=== PATIENT | female | born 1985 | race Caucasian/White ===

== ENCOUNTER → 2020-07-31 14:02 | Outpatient (BNVA) | payer OTHER, SELFPAY | PROVIDERS: Visit Provider Dietitian, Registered | DX: Z76.89 Persons encountering health services in other specified circumstances (principal) ==

== ENCOUNTER → 2020-08-21 08:48 | Outpatient (BNVA) | payer OTHER, SELFPAY | PROVIDERS: PCP Nurse Practitioner Family; Visit Provider Dietitian, Registered | DX: Z76.89 Persons encountering health services in other specified circumstances (principal) ==

== ENCOUNTER → 2020-09-11 08:16 | Outpatient (BNVA) | payer OTHER, SELFPAY | PROVIDERS: PCP Nurse Practitioner Family; Visit Provider Dietitian, Registered | DX: Z76.89 Persons encountering health services in other specified circumstances (principal) ==

== ENCOUNTER 2020-09-12 08:11 | Outpatient (REF) | payer OTHER, SELFPAY ==
[2020-09-12 08:48] LABS: MANUAL DIFF FLAG NO
[2020-09-12 08:49] LABS: Basophils Absolute Auto 0.1 X10*3/uL (0.0-0.2); Basophils Percent Auto 0.8 % (0-2); Eosinophils Absolute Auto 0.1 X10*3/uL (0.0-0.4); Eosinophils Percent Auto 1.7 % (0-4); Hematocrit 34.2 % (37-47); Hemoglobin 10.6 g/dl (12.0-16.0); Imm Gran Abs Auto 0.02 X10*3/uL (0.00-0.03); Imm Gran Pct Auto 0.3 % (0.0-0.4); Lymphocytes Absolute Auto 3.3 X10*3/uL (1.2-4.9); Mean Corpuscular Hemoglobin 25.9 pg (27.0-33.0); Mean Corpuscular Volume 83.6 fL (80-98); Mean Platelet Volume 9.3 fL (9.4-12.3); Monocytes Absolute Auto 0.5 X10*3/uL (0.1-1.2); Monocytes Percent Auto 6.6 % (2-11); Neutrophils Absolute Auto 3.6 X10*3/uL (2.0-8.3); Neutrophils Percent Auto 47.6 % (45-73); Platelet Count 339 X10*3/uL (160-400); Red Blood Count 4.09 X10*6/uL (4.20-5.50); Red Cell Distribution Width 13.2 % (11.0-16.0); White Blood Count 7.6 X10*3/uL (4.8-10.8)
[2020-09-12 09:36] LABS: Estimated Average Glucose 94 mg/dL; Hemoglobin A1c % 4.9 %
[2020-09-12 09:50] LABS: Ferritin 2 ng/mL (10-122); TSH reflex Free T4 0.94 mIU/mL (0.32-4.0); Vitamin D 25-OH Total 36.2 ng/mL (>30)
[2020-09-12 09:52] LABS: Alanine Aminotransferase 14 U/L (0-31); Albumin Level 3.7 g/dL (3.5-5.0); Alkaline Phosphatase 56 U/L (39-117); Anion Gap 10 (12-20); Aspartate Amino Transferase 12 U/L (5-31); Bilirubin Total 0.2 mg/dL (0.0-1.0); Blood Urea Nitrogen 11 mg/dL (9-16); C Reactive Protein 0.25 mg/dL (< or = 0.50); Calcium 8.6 mg/dL (8.4-10.2); Carbon Dioxide 28 mmol/L (22-29); Chloride 103 mmol/L (96-108); Cholesterol 185 mg/dL; Estimated Glomerular Filt Rate > 60; Glucose Fasting 75 mg/dL (60-99); HDL Cholesterol 56 mg/dL; Iron 22 mcg/dL (30-160); LDL Cholesterol Calculated 107 mg/dl; Percent Iron Saturation 5 % (15-50); Potassium 5.1 mmol/l (3.3-5.1); Sodium 136 mmol/L (135-145); Total Iron Binding Capacity 415 mcg/dL (228-428); Triglycerides 112 mg/dL; Unsaturated Iron Binding 393 ug/dL
[2020-09-14 08:32] LABS: Folate 14.9 ng/mL (> or = 4.0); Vitamin B12 816 pg/mL (200-900)
[2020-09-14 17:27] LABS: Insulin Level Total 2.9 uIU/mL
[2020-09-16 06:12] LABS: Zinc 74 mcg/dL (60-130)
[2020-09-17 23:56] LABS: Vitamin A 50 mcg/dL (38-98)
[2020-09-22 21:28] LABS: Parathyroid Hormone Related Pr 13 pg/mL (14-27)
== END 2020-09-12 08:12 | disposition home or self-care (01) ==
LOC: HO.LAB 08:11
PROVIDERS: Physician Assistant; Visit Provider Nurse Practitioner Family
DX: K90.49 Malabsorption due to intolerance, not elsewhere classified (principal)
CPT/HCPCS: 36415; 80053; 80061; 82306; 82607; 82728; 82746; 83036; 83519; 83525; 83540; 84425; 84443; 84590; 84630; 85025; 86140

== ENCOUNTER 2020-09-14 07:20 | Outpatient (REF) | payer OTHER, SELFPAY ==
[2020-09-14 08:34] LABS: HBS Num1 37.04 mIU/mL (0-7.99); ~Hepatitis B Surface Antibody REACTIVE (Nonreactive)
[2020-09-15 17:27] LABS: Varicella IgG Antibody <135.00 index
[2020-09-18 19:56] LABS: TS Negative Control Passed; TS Panel A 0; TS Panel B 0; TS Positive Control Passed; TSpotTB Negative (SeeBelow)
== END 2020-09-14 07:21 | disposition home or self-care (01) ==
LOC: HO.LAB 07:20
PROVIDERS: Visit Provider Nurse Practitioner Family
DX: Z28.3 Underimmunization status (principal)
CPT/HCPCS: 86481; 86706; 86735; 86762; 86765; 86787

== ENCOUNTER 2020-09-14 16:15 | Outpatient (REF) | payer OTHER, SELFPAY ==
[2020-09-20 12:57] LABS: Vitamin B1 13 nmol/L (8-30)
== END 2020-09-14 16:16 | disposition home or self-care (01) ==
LOC: HO.LAB 16:15
PROVIDERS: Visit Provider Physician Assistant
DX: K90.49 Malabsorption due to intolerance, not elsewhere classified (principal); Z28.3 Underimmunization status
CPT/HCPCS: 84425

== ENCOUNTER 2021-10-27 12:14 | Outpatient (REF) | payer OTHER, SELFPAY | END 2021-10-27 12:15 | disposition home or self-care (01) | LOC: HO.LAB 12:14 | PROVIDERS: Visit Provider Hospitalist | DX: Z20.822 Contact with and (suspected) exposure to COVID-19 (principal); J02.8 Acute pharyngitis due to other specified organisms; B97.89 Other viral agents as the cause of diseases classified elsewhere | CPT/HCPCS: U0003; U0005 ==

== ENCOUNTER → 2022-01-18 10:46 | Outpatient (BNVA) | payer BC, SELFPAY | PROVIDERS: PCP Nurse Practitioner Family; Referring Provider Nurse Practitioner Family; Visit Provider Physician Assistant Surgical | DX: Z13.89 Encounter for screening for other disorder (principal) ==

== ENCOUNTER → 2022-01-27 12:59 | Outpatient (BNVA) | payer BC, SELFPAY | PROVIDERS: PCP Nurse Practitioner Family; Visit Provider Dietitian, Registered | DX: O09.521 Supervision of elderly multigravida, first trimester (principal); O09.291 Supervision of pregnancy with other poor reproductive or obstetric history, first trimester; O99.210 Obesity complicating pregnancy, unspecified trimester; E66.9 Obesity, unspecified; K91.2 Postsurgical malabsorption, not elsewhere classified; Z88.3 Allergy status to other anti-infective agents; Z3A.01 Less than 8 weeks gestation of pregnancy; Z90.3 Acquired absence of stomach [part of]; Z88.2 Allergy status to sulfonamides; Z88.8 Allergy status to other drugs, medicaments and biological substances; Z71.3 Dietary counseling and surveillance | CPT/HCPCS: 97803 ==

== ENCOUNTER 2022-02-15 16:06 | Outpatient (REF) | payer BC, SELFPAY ==
[2022-02-15 16:19] LABS: MANUAL DIFF FLAG NO
[2022-02-15 16:26] LABS: Basophils Absolute Auto 0.1 X10*3/uL (0.0-0.2); Basophils Percent Auto 0.5 % (0-2); Eosinophils Absolute Auto 0.2 X10*3/uL (0.0-0.4); Eosinophils Percent Auto 1.6 % (0-4); Hematocrit 32.7 % (37.0-47.0); Hemoglobin 10.3 g/dl (12.0-16.0); Imm Gran Abs Auto 0.04 X10*3/uL (0.00-0.03); Imm Gran Pct Auto 0.4 % (0.0-0.4); Lymphocytes Absolute Auto 3.9 X10*3/uL (1.2-4.9); Lymphocytes Percent Auto 39.7 % (20-40); Mean Corpuscular HGB Conc 31.5 g/dl (31.0-35.0); Mean Corpuscular Hemoglobin 24.5 pg (27.0-33.0); Mean Corpuscular Volume 77.9 fL (80.0-98.0); Mean Platelet Volume 9.3 fL (9.4-12.3); Monocytes Absolute Auto 0.7 X10*3/uL (0.1-1.2); Monocytes Percent Auto 6.9 % (2-11); Neutrophils Percent Auto 50.9 % (45-73); Platelet Count 291 X10*3/uL (160-400); Red Cell Distribution Width 16.9 % (11.0-16.0); White Blood Count 9.8 X10*3/uL (4.8-10.8)
[2022-02-15 16:35] LABS: Estimated Average Glucose 94 mg/dL; Hemoglobin A1c % 4.9 %
[2022-02-15 16:59] LABS: Anion Gap 10 (12-20); Blood Urea Nitrogen 8 mg/dL (9-16); Calcium 9.8 mg/dL (8.4-10.2); Carbon Dioxide 26 mmol/L (22-29); Chloride 105 mmol/L (96-108); Estimated Glomerular Filt Rate > 60; Glucose Random 89 mg/dL (60-115); Iron 27 mcg/dL (30-160); Percent Iron Saturation 6 % (15-50); Potassium 4.7 mmol/L (3.3-5.1); Sodium 136 mmol/L (135-145); Total Iron Binding Capacity 439 mcg/dL (228-428); Unsaturated Iron Binding 412 ug/dL
[2022-02-15 17:21] LABS: Ferritin 5 ng/mL (10-122); TSH reflex Free T4 1.02 uIU/mL (0.32-4.0); Vitamin D 25-OH Total 29.4 ng/mL (>30)
[2022-02-15 17:32] LABS: Folate 18.1 ng/mL (> or = 4.0); Vitamin B12 799 pg/mL (200-900)
[2022-02-19 02:18] LABS: Zinc 61 mcg/dL (60-130)
[2022-02-21 10:53] LABS: Vitamin B1 19 nmol/L (8-30)
[2022-02-21 13:26] LABS: Vitamin A 43 mcg/dL (38-98)
== END 2022-02-15 16:07 | disposition home or self-care (01) ==
LOC: HO.LAB 16:06
PROVIDERS: PCP Nurse Practitioner Family; Visit Provider Physician Assistant Surgical
DX: O99.210 Obesity complicating pregnancy, unspecified trimester (principal); E66.9 Obesity, unspecified
CPT/HCPCS: 36415; 80048; 82306; 82607; 82728; 82746; 83036; 83540; 84425; 84443; 84590; 84630; 85025

== ENCOUNTER → 2022-02-16 10:39 | Outpatient (BNVA) | payer BC, SELFPAY | PROVIDERS: PCP Nurse Practitioner Family; Referring Provider Nurse Practitioner Family; Visit Provider Physician Assistant Surgical | DX: Z13.89 Encounter for screening for other disorder (principal) ==

== ENCOUNTER → 2022-03-16 08:12 | Outpatient (BNVA) | payer BC, SELFPAY | PROVIDERS: PCP Nurse Practitioner Family; Referring Provider Physician Assistant Surgical; Visit Provider Dietitian, Registered | DX: E66.9 Obesity, unspecified (principal); Z68.34 Body mass index [BMI] 34.0-34.9, adult | CPT/HCPCS: 97803 ==

== ENCOUNTER → 2022-05-06 08:33 | Outpatient (BNVA) | payer BC, SELFPAY | PROVIDERS: PCP Nurse Practitioner Family; Referring Provider Physician Assistant Surgical; Visit Provider Dietitian, Registered | DX: E66.9 Obesity, unspecified (principal) | CPT/HCPCS: 97803 ==

== ENCOUNTER → 2022-07-07 14:50 | Outpatient (BNVA) | payer BC, SELFPAY | PROVIDERS: PCP Nurse Practitioner Family; Referring Provider Physician Assistant Surgical; Visit Provider Dietitian, Registered | DX: E66.9 Obesity, unspecified (principal); Z90.3 Acquired absence of stomach [part of]; Z68.35 Body mass index [BMI] 35.0-35.9, adult | CPT/HCPCS: 97803 ==

== ENCOUNTER 2022-08-04 10:08 | Outpatient (REF) | payer BC, SELFPAY ==
[2022-08-04 10:49] LABS: MANUAL DIFF FLAG NO
[2022-08-04 11:22] LABS: Basophils Absolute Auto 0.1 X10*3/uL (0.0-0.2); Basophils Percent Auto 0.5 % (0-2); Eosinophils Absolute Auto 0.1 X10*3/uL (0.0-0.4); Eosinophils Percent Auto 0.7 % (0-4); Hematocrit 33.4 % (37.0-47.0); Hemoglobin 10.8 g/dl (12.0-16.0); Imm Gran Abs Auto 0.16 X10*3/uL (0.00-0.03); Imm Gran Pct Auto 1.5 % (0.0-0.4); Lymphocytes Absolute Auto 2.7 X10*3/uL (1.2-4.9); Lymphocytes Percent Auto 24.8 % (20-40); Mean Corpuscular HGB Conc 32.3 g/dl (31.0-35.0); Mean Corpuscular Hemoglobin 26.5 pg (27.0-33.0); Mean Corpuscular Volume 82.1 fL (80.0-98.0); Mean Platelet Volume 9.7 fL (9.4-12.3); Monocytes Absolute Auto 0.6 X10*3/uL (0.1-1.2); Monocytes Percent Auto 5.7 % (2-11); Neutrophils Absolute Auto 7.3 x10*3/uL (2.0-8.3); Neutrophils Percent Auto 66.8 % (45-73); Platelet Count 238 X10*3/uL (160-400); Red Blood Count 4.07 X10*6/uL (4.20-5.50); Red Cell Distribution Width 13.8 % (11.0-16.0)
[2022-08-04 12:11] LABS: Vitamin D 25-OH Total 32.7 ng/mL (>30)
[2022-08-04 12:26] LABS: Alanine Aminotransferase 10 U/L (0-31); Albumin Level 3.5 g/dL (3.5-5.0); Alkaline Phosphatase 73 U/L (39-117); Anion Gap 13 (12-20); Aspartate Amino Transferase 12 U/L (5-31); Bilirubin Total < 0.2 mg/dL (0.0-1.0); Blood Urea Nitrogen 7 mg/dL (9-16); Calcium 8.5 mg/dL (8.4-10.2); Carbon Dioxide 23 mmol/L (22-29); Chloride 106 mmol/L (96-108); Cholesterol 227 mg/dL; Estimated Glomerular Filt Rate > 60; Glucose Random 77 mg/dL (60-115); HDL Cholesterol 71 mg/dL; Iron 41 mcg/dL (30-160); LDL Cholesterol Calculated 130 mg/dl; Percent Iron Saturation 7 % (15-50); Potassium 4.5 mmol/L (3.3-5.1); Sodium 137 mmol/L (135-145); Total Iron Binding Capacity 560 mcg/dL (228-428); Total Protein 6.1 g/dL (6.5-8.0); Triglycerides 133 mg/dL; Unsaturated Iron Binding 519 ug/dL
[2022-08-04 12:30] LABS: Vitamin B12 688 pg/mL (200-900)
[2022-08-05 12:06] LABS: Calcium (PTHI) 8.7 mg/dL (8.6-10.2); PTHI 27 pg/mL (16-77)
[2022-08-09 19:47] LABS: Vitamin A 41 mcg/dL (38-98)
[2022-08-09 23:55] LABS: Zinc 57 mcg/dL (60-130)
[2022-08-11 16:41] LABS: Vitamin B1 10 nmol/L (8-30)
== END 2022-08-04 10:09 | disposition home or self-care (01) ==
LOC: HO.LAB 10:08
PROVIDERS: PCP Nurse Practitioner Family; Visit Provider Physician Assistant
DX: O99.019 Anemia complicating pregnancy, unspecified trimester (principal); E61.1 Iron deficiency; Z90.3 Acquired absence of stomach [part of]
CPT/HCPCS: 36415; 80053; 80061; 82306; 82607; 82746; 83540; 83970; 84425; 84590; 84630; 85025

== ENCOUNTER → 2022-08-05 09:31 | Outpatient (BNVA) | payer BC, SELFPAY | PROVIDERS: PCP Nurse Practitioner Family; Referring Provider Nurse Practitioner Family; Visit Provider Dietitian, Registered | DX: E66.9 Obesity, unspecified (principal); Z68.37 Body mass index [BMI] 37.0-37.9, adult | CPT/HCPCS: 97803 ==

== ENCOUNTER 2022-12-26 09:31 | Outpatient (REF) | payer BC, SELFPAY ==
[2022-12-26 09:52] LABS: MANUAL DIFF FLAG NO
[2022-12-26 10:40] LABS: Appearance Urine Cloudy; Color Urine Yellow; Glucose Urine UA Negative (Negative); Leukocyte Esterase Urine Small (1+) (Negative); Nitrite Urine Negative (Negative); Specific Gravity - Urine 1.015 (1.005-1.025); UMIC TRIGGER UACC YES; Urine Blood Negative (Negative); Urine Ketones Negative (Negative); Urine Protein Negative (Neg-Trace)
[2022-12-26 10:49] LABS: Bacteria Urine 1+ (None Seen); RBC Urine 0-2 /HPF (0-2); UACC Culture Trigger YES
[2022-12-26 10:50] LABS: Hyaline Casts Urine 0-2 /LPF (0-2)
[2022-12-26 10:58] LABS: Basophils Absolute Auto 0.1 X10*3/uL (0.0-0.2); Basophils Percent Auto 0.8 % (0-2); Eosinophils Absolute Auto 0.1 X10*3/uL (0.0-0.4); Eosinophils Percent Auto 1.9 % (0-4); Hematocrit 36.1 % (37.0-47.0); Hemoglobin 11.5 g/dl (12.0-16.0); Imm Gran Abs Auto 0.02 X10*3/uL (0.00-0.03); Imm Gran Pct Auto 0.3 % (0.0-0.4); Lymphocytes Absolute Auto 3.2 X10*3/uL (1.2-4.9); Lymphocytes Percent Auto 43.6 % (20-40); Mean Corpuscular HGB Conc 31.9 g/dl (31.0-35.0); Mean Corpuscular Volume 81.5 fL (80.0-98.0); Mean Platelet Volume 9.7 fL (9.4-12.3); Monocytes Absolute Auto 0.5 X10*3/uL (0.1-1.2); Monocytes Percent Auto 6.3 % (2-11); Neutrophils Absolute Auto 3.4 x10*3/uL (2.0-8.3); Neutrophils Percent Auto 47.1 % (45-73); Platelet Count 308 X10*3/uL (160-400); Red Blood Count 4.43 X10*6/uL (4.20-5.50); Red Cell Distribution Width 13.9 % (11.0-16.0); White Blood Count 7.3 X10*3/uL (4.8-10.8)
[2022-12-26 11:33] LABS: Alanine Aminotransferase 21 U/L (0-31); Alkaline Phosphatase 49 U/L (39-117); Anion Gap 13 (12-20); Aspartate Amino Transferase 15 U/L (5-31); Bilirubin Total 0.4 mg/dL (0.0-1.0); Blood Urea Nitrogen 13 mg/dL (9-16); Calcium 8.8 mg/dL (8.4-10.2); Carbon Dioxide 26 mmol/L (22-29); Chloride 108 mmol/L (96-108); Cholesterol 204 mg/dL; Estimated Glomerular Filt Rate > 60; Glucose Fasting 75 mg/dL (60-99); HDL Cholesterol 60 mg/dL; LDL Cholesterol Calculated 130 mg/dl; Potassium 4.6 mmol/L (3.3-5.1); Sodium 142 mmol/L (135-145); Total Protein 6.4 g/dL (6.5-8.0); Triglycerides 71 mg/dL
[2022-12-26 12:06] LABS: Folate 13.5 ng/mL (> or = 4.0); TSH reflex Free T4 1.14 uIU/mL (0.32-4.0); Vitamin B12 417 pg/mL (200-900)
[2022-12-28 09:38] LABS: Transglutaminase Ab IgG <1.0 U/mL; Transglutaminase IgA <1.0 U/mL
[2022-12-29 17:14] LABS: Endomysial IgA Antibody Negative (Negative)
== END 2022-12-26 09:32 | disposition home or self-care (01) ==
LOC: HO.LAB 09:31
PROVIDERS: PCP Nurse Practitioner Family; Visit Provider Nurse Practitioner Family
DX: Z00.00 Encounter for general adult medical examination without abnormal findings (principal); K90.41 Non-celiac gluten sensitivity; R82.90 Unspecified abnormal findings in urine; R53.83 Other fatigue
CPT/HCPCS: 36415; 80053; 80061; 81001; 82607; 82746; 84443; 85025; 86231; 86364; 87086

== ENCOUNTER 2024-03-01 18:35 | Emergency (ER) | payer BC, SELFPAY ==
[2024-03-01 19:09] VITALS: BP 129/72; PULSE 59; RESP 14; TEMP 36.6; O2SAT 100; BMI 38.8
--- NOTE | 2024-03-01 19:09 | ED.EYEPROB ---
HPI - Eye Problem General Chief complaint: Eye Problems Stated complaint: L eye inj Time Seen by Provider: 03/01/24 20:00 Source: patient, RN notes reviewed and old records reviewed Mode of arrival: ambulatory Limitations: no limitations History of Present Illness HPI Narrative: 39-year-old female presents for evaluation of left eye pain Patient was poked in the eye with a stick by her [id number] about 2 hours prior to arrival She reports some excessive tearing and slight blurry vision The patient does not wear contacts but does occasionally wear glasses Intra-ocular pressure was measured in triage with the right eye measuring 15 mmHg and left eye measuring 16 mmHg Patient feels a scratching sensation whenever she blinks She has no other complaints or concerns at this time Related Data Home Medications ?Medication ?Instructions ?Recorded ?Confirmed acetaminophen 325 mg tablet 650 mg PO Q4H PRN pain 09/09/20 11/23/22 flu vac qs 2019(4 yr up)CD(PF) 60 ml IM 09/09/20 11/23/22 mcg(15 mcgx4)/0.5 mL IM syringe Greg+D PO BID 01/18/22 11/23/22 MVI PO DAILY 01/18/22 11/23/22 b12 PO DAILY 02/16/22 11/23/22 biotin 2,500 mcg capsule 2,500 mcg PO DAILY 05/31/22 11/23/22 ferrous sulfate 325 mg (65 mg 325 mg PO DAILY 05/31/22 11/23/22 iron) tablet (Feosol) ascorbate calcium (vitamin C) 500 500 mg PO DAILY 11/23/22 11/23/22 mg tablet sertraline 50 mg tablet 50 mg PO DAILY 11/23/22 11/23/22 Previous Rx's ?Medication ?Instructions ?Recorded zinc acetate 25 mg (zinc) capsule 25 mg PO DAILY #30 caps 08/12/22 (Galzin) erythromycin 5 mg/gram (0.5 %) eye 0.5 inch ophthalmic (eye) TID 5 03/01/24 ointment days #3.5 grams Allergies Allergy/AdvReac Type Severity Reaction Status Date / Time sulfamethoxazole Allergy Mild SEVERE Verified 03/01/24 19:11 [From BACTRIM] MIGRAINES trimethoprim [From BACTRIM] Allergy Mild SEVERE Verified 03/01/24 19:11 MIGRAINES Sulfa (Sulfonamide Allergy Unknown SEVERE Verified 03/01/24 19:11 Antibiotics) MIGRAINES, migraines, migraines NSAIDS (Non-Steroidal AdvReac unable to Verified 03/01/24 19:11 Anti-Inflamma take 2/2 gastric sleeve Review of Systems Constitutional: Constitutional: Denies anorexia, Denies body ache(s) and Denies headache(s) Eyes: Eyes: Reports blurry vision, Denies change in vision, Denies irritation, Denies itchy eyes, Reports eye pain and Reports requires corrective lenses ENT: Denies headache(s) and Denies sore throat Cardiovascular: Cardiovascular: Denies chest pain and Denies dyspnea Respiratory: Respiratory: Denies cough and Denies dyspnea Integumentary/Breasts: Skin/Breast: Denies rash Neurologic: Denies headache(s) Allergic/Immunologic: Allergic/Immunologic: Denies itchy eyes PMFSH Past Medical History Medical History Cervical polyp History of miscarriage, not currently Malabsorption due to intolerance, not elsewhere classified Surgical History History of sleeve gastrectomy Hx of wisdom tooth extraction Family History Family History Father Hypertension Substance use disorder Mother Alcoholism S/P panniculectomy Active asthma Hypertension Substance use disorder Mental health disorder Sister Alcoholism Hypertension Mental health disorder Social History Social History Housing: Apartment Alcohol intake: never Patient Tobacco Use Status: Never used Tobacco e-Cigarette/Vaping Use: Never Used Second Hand Smoke Exposure: No Advance Directives: No Advance Directives Information Provided: No service: No Current occupational status: employed Current occupation: [employer] in [place] Current occupational exposures/hazards: No Cognitive needs: No Hearing needs: No Vision needs: No Physical Exam Vital Signs: Vital Signs: Last Vital Signs Temp 97.8 F 03/01/24 20:35 Pulse 65 03/01/24 20:35 Resp 18 03/01/24 20:35 BP 120/58 L 03/01/24 20:35 Pulse Ox 100 03/01/24 20:35 O2 Del Method Room Air 03/01/24 20:21 BMI result Body Mass Index 38.8 Eyes: Alignment and Position: alignment normal Periorbital: periorbital findings normal Eyelids: Yes eyelids normal Conjunctivae: conjunctival abnormal left conjunctival chemosis (In the very lateral corner of the eye) Corneas: corneas abnormal on the left (Increased fluorescein uptake at the 5 o'clock position of the cornea. Negative Mikayla sign) fluorescein used and fluorescein used Course Course Course Narrative: This is a rapid medical exam performed by Royal Gruber NP: Additional HPI, ROS, PE not included below will be deferred to primary provider. Patient is a 39-year-old female presenting to the ED after left eye injury. States child accidentally hit her in the eye with a stick in the yard 1.5-2 hours ago. She reports bubble to lateral corner of inner eyelid. Some blurred vision and occasional black spots. Occasional glasses, does not wear contacts. IOPs: R 15, L 16. Plan: visual acuity, tetracaine and fluorescein ordered Medications Administered Discontinued Medications Generic Name Dose Route Start Last Admin Trade Name Freq PRN Reason Stop Dose Admin Erythromycin 1 cm 03/01/24 20:26 03/01/24 20:32 Erythromycin Base 0.5% Oph Oin 1 Gm Tube EYE-LEFT 03/01/24 20:27 1 cm ONCE ONE Administration Fluorescein Sodium 1 strip 03/01/24 19:17 03/01/24 20:34 Fluorescein Sodium Strip EYE-LEFT 03/01/24 19:18 1 strip ONCE ONE Administration Tetracaine HCl 1 drop 03/01/24 19:17 03/01/24 20:34 Tetracaine Hcl 0.5% Oph Jessica 5 Ml Drops EYE-LEFT 03/01/24 19:18 1 drop ONCE ONE Administration Medical Decision Making Medical Decision Making MDM Narrative: 31 old female presents for evaluation after a traumatic injury to the left eye. Her pupils round, reactive to light and accommodation. She has extraocular motion intact in all cardinal directions. There is no evidence of foreign body on exam. She has a small bubble like area of chemosis near the lacrimal duct of the lateral side. There is a small corneal abrasion. Intra-ocular pressures are within normal limits. Will treat with erythromycin for corneal abrasion she was given Ophthalmology follow-up for any further concerns. Differential Diagnosis Differential Diagnoses: The differential diagnosis associated with the presentation includes Corneal abrasion Chemosis Foreign body Globe rupture less likely Discharge Plan Discharge Clinical Impression: Injury of conjunctiva and corneal abrasion of left eye w/o FB Patient Disposition: Home, Self-Care Instructions: Corneal Abrasion (ED) Additional Instructions: You have a corneal abrasion to the left eye. The bubble like structure is called chemosis This is common with trauma to the eye Use erythromycin ointment 3 times daily for the next 5 days You may use ibuprofen/Tylenol for pain Follow-up with Dr. Soto, Ophthalmology at the number provided Prescriptions: New erythromycin 5 mg/gram (0.5 %) ointment 0.5 inch ophthalmic (eye) TID 5 Days Qty: 3.5 0RF No Action Galzin 25 mg (zinc) capsule 25 mg PO DAILY Qty: 30 6RF acetaminophen 325 mg tablet 650 mg PO Q4H PRN (Reason: pain) Flucelvax Quad (PF) 60 mcg (15 mcg x 4)/0.5 mL syringe IM biotin 2,500 mcg capsule 2,500 mcg PO DAILY ferrous sulfate [Feosol] 325 mg (65 mg iron) tablet 325 mg PO DAILY ascorbate calcium (vitamin C) 500 mg tablet 500 mg PO DAILY sertraline 50 mg tablet 50 mg PO DAILY Greg+D PO BID MVI PO DAILY b12 2,500 mcg PO DAILY Referrals: Josr Soto [Physician] - (left eye corneal abrasion f/u) Interventions: ED Discharge Assessment Last Done: 03/01/24 20:35 Discharge Date/Time: 03/01/24 20:37 Print Language: Chinese
[2024-03-01 20:21] VITALS: BP 120/58; PULSE 65; RESP 18; TEMP 36.6; O2SAT 100
[2024-03-01] MEDS: Erythromycin Base 0.5% Oph Oin 1 GM TUBE 1 CM EYE-LEFT (20:32)
[2024-03-01] MEDS: Fluorescein Sodium STRIP 1 STRIP EYE-LEFT (20:34)
[2024-03-01] MEDS: Tetracaine HCl 0.5% Oph Sol 5 ML DROPS 1 DROP EYE-LEFT (20:34)
[2024-03-01 20:35] VITALS: BP 120/58; PULSE 65; RESP 18; TEMP 36.6; O2SAT 100
== END 2024-03-01 20:37 | disposition home or self-care (01) ==
PROVIDERS: Emergency Provider Emergency Medicine; PCP Nurse Practitioner Family
DX: S05.02XA Injury of conjunctiva and corneal abrasion without foreign body, left eye, initial encounter (principal); H57.12 Ocular pain, left eye; X58.XXXA Exposure to other specified factors, initial encounter; Y93.9 Activity, unspecified; Y92.9 Unspecified place or not applicable; Y99.8 Other external cause status
CPT/HCPCS: 99283

== ENCOUNTER 2024-09-09 09:35 | Outpatient (AMB) | payer BC, SELFPAY ==
--- NOTE | 2024-09-09 09:39 | MHC.OFFWIV ---
Intake Vital Signs 09/09/24 09:42 Height 5 ft 2 in Weight 215 lb 4 oz BMI 39.4 BP 114/69 Blood Pressure Location Rt brachial Position Sitting Respiration 13 Pulse 60 Pulse Source Pulse Oximeter Pulse Oximetry (%) 98 Oxygen Delivery Method Room Air Intake Visit Reasons: walkin work physical Intake Note: walk in work physical Patient Tobacco Use Status: Never used Tobacco Border Inspector Required: No Allergies sulfamethoxazole [From BACTRIM] Allergy (Mild, Verified 09/09/24 09:46) SEVERE MIGRAINES trimethoprim [From BACTRIM] Allergy (Mild, Verified 09/09/24 09:46) SEVERE MIGRAINES Sulfa (Sulfonamide Antibiotics) Allergy (Unknown, Verified 09/09/24 09:46) SEVERE MIGRAINES, migraines, migraines NSAIDS (Non-Steroidal Anti-Inflamma Adverse Reaction (Verified 09/09/24 09:46) unable to take 2/2 gastric sleeve Medication List - Last Reconciled 09/09/24 by CHERISE Olmedo acetaminophen 650 mg PO Q4H PRN ascorbate calcium (vitamin C) 500 mg PO DAILY [b12 PO DAILY] biotin 2,500 mcg PO DAILY [Greg+D PO BID] ferrous sulfate (Feosol) 325 mg PO DAILY [ MVI PO DAILY] sertraline 50 mg PO DAILY zinc acetate (Galzin) 25 mg PO DAILY Do you need a note to return to daycare/school/sports/work: Yes HPI HPI Comments History of Present Illness Details Here today for pre-employment physical exam [employer] for [employer], start Date 09/23/2024 Glasses - UTD on eye exam Summer 2023 Tdap 2022 Flu today Offers no complaints PFSH Medical History (Updated 09/09/24 @ 12:58 by CHERISE Olmedo) Pancreatitis, gallstone History of miscarriage, not currently Cervical polyp Malabsorption due to intolerance, not elsewhere classified Surgical History (Updated 04/28/24 @ 13:55 by CHERISE Catalan) Hx laparoscopic cholecystectomy History of sleeve gastrectomy Hx of wisdom tooth extraction Family History Father Hypertension Substance use disorder Mother Alcoholism S/P panniculectomy Active asthma Hypertension Substance use disorder Mental health disorder Sister Alcoholism Hypertension Mental health disorder Social History Housing: Apartment Alcohol intake: never Patient Tobacco Use Status: Never used Tobacco e-Cigarette/Vaping Use: Never Used Second Hand Smoke Exposure: No service: No Current occupational status: employed Current occupation: [employer] in [place] Current occupational exposures/hazards: No Cognitive needs: No Hearing needs: No Vision needs: No Review of Systems Const Details: Constitutional: Denies fever. Skin: Denies rash. Eye: Denies eye pain. ENMT: Denies sore throat and nasal congestion. Respiratory: Denies shortness of breath and cough. Gastrointestinal: Denies nausea, vomiting or abdominal pain. Cardiovascular: Denies chest pain and syncope. Genitourinary: Denies dysuria. Musculoskeletal: Denies back pain and extremity pain. Neurologic: Denies headaches, confusion, and weakness. Psychiatric: Denies suicidal thoughts and substance abuse. Allergy/ Immunologic: Denies impaired immunity. Physical Exam Vital Signs: Last Vital Signs Pulse 60 09/09/24 09:42 Resp 13 09/09/24 09:42 BP 114/69 09/09/24 09:42 Pulse Ox 98 09/09/24 09:42 Oxygen Delivery Method Room Air 09/09/24 09:42 BMI result Body Mass Index 39.4 Const Other: General: Well developed, well nourished, in no acute distress. Appears stated age. Head: Normocephalic, atraumatic. Eyes: Pupils are equal, round and reactive to light and accommodation. Conjunctivae are clear. Vision grossly normal. Ears: TMs clear AU, EACS WNL Nose: Patent, without discharge. Mouth: There are no ulcers or lesions noted. No inflammation, no post nasal drip, no plaques nor exudates. Neck: Supple, no adenopathy or thyromegaly. Lungs: Clear to auscultation bilaterally. No rales, rhonchi or wheeze noted. Good air flow in all enrique. Heart: Regular rate and rhythm. No murmurs, click, rubs or gallops are noted. Abdomen: Bowel sounds present in all quadrants. The abdomen is soft, nontender, with no masses or organomegaly noted. No hernias are noted. Musculoskeletal: Joints are nontender, without swelling, redness, or effusions. Range of motion is observed to be normal. Pulses: Peripheral pulses are equal and palpable bilaterally. Extremities: No clubbing, cyanosis nor edema is noted. Neurologic: Gait and station normal. Cranial Nerves 2-12 intact. Motor strength grossly symmetrical and intact. No sensory loss. Balance normal. Skin: No rashes, ulcers, or lesions noted. Turgor is good. Skin color is good. Hair and nails are without abnormalities. Psych: Normal eye contact, affect and mood appropriate, and normal interactions. Patient is alert and appropriate to context. Office Procedures Flu Questionnaire Does the patient have a severe egg allergy?: No Does the patient have severe life threatening allergies?: No Does the patient have a fever or illness today?: No Has the patient ever had Guillain-Oberlin Syndrome?: No Has the patient ever had any past reaction to a flu shot?: No Immunizations Fluarix Triv [id number] (PF) 45 mcg (15 mcg x 3)/0.5 mL IM syringe Performing Provider: CHERISE Olmedo [place] [facility] [place] [facility] Administered by: Yolanda Ray RN on 09/09/24 10:12 Dose Route Admin Location Dispensed Lot Number Expiration Date [facility] Pulmonology Technician 0.5 mL IM Right Deltoid 0.5 mL [id number] 04/21/25 [id number] [employer] VIS Given Date VIS Provided VIS Publication Date 09/09/24 Single Vaccine 21 Eligibility Eligibility Date Funding Source Not [facility] Eligible 09/09/24 Private Assessment & Plan Assessment & Plan (1) Physical exam, pre-employment: Comment: Cleared to work, without restrictions, note provided Code(s): Z02.1 - Encounter for pre-employment examination Plan: . (2) Screening for tuberculosis: Code(s): Z11.1 - Encounter for screening for respiratory tuberculosis Plan: . (3) Flu vaccine need: Code(s): Z23 - Encounter for immunization Plan . Orders: Orders T Spot TB Today Z02.1 - Encounter for pre-employment examination, Z11.1 - Encounter for screening for respiratory tuberculosis Influenza [id number] Immunization Today Z23 - Encounter for immunization Coding Level of Care Code Sports/Work/School Physical Diagnoses Physical exam, pre-employment Z02.1 Screening for tuberculosis Z11.1 Flu vaccine need Z23
[2024-09-09 09:42] VITALS: BP 114/69; PULSE 60; RESP 13; O2SAT 98; BMI 39.4
== END 2024-09-09 10:15 | disposition home or self-care (01) ==
PROVIDERS: PCP Nurse Practitioner Family; Visit Provider Nurse Practitioner Family
DX: Z00.00 Encounter for general adult medical examination without abnormal findings (principal); Z11.1 Encounter for screening for respiratory tuberculosis; Z23 Encounter for immunization

== ENCOUNTER → 2024-09-09 09:35 | Outpatient (BNVA) | payer BC, SELFPAY | PROVIDERS: PCP Nurse Practitioner Family ==

== ENCOUNTER 2024-09-09 10:14 | Outpatient (REF) | payer OTHER, SELFPAY ==
[2024-09-12 10:04] LABS: TS Negative Control Passed; TS Panel A 0; TS Panel B 3; TS Positive Control Passed; TSpotTB Negative (Negative)
== END 2024-09-09 10:15 | disposition home or self-care (01) ==
LOC: HO.WFDLDS 10:14
PROVIDERS: Visit Provider Nurse Practitioner Family
DX: Z02.1 Encounter for pre-employment examination (principal); Z23 Encounter for immunization; Z11.1 Encounter for screening for respiratory tuberculosis
CPT/HCPCS: 36415; 86481; 90471; 90656

== ENCOUNTER 2025-06-09 07:35 | Outpatient (AMB) | payer BC, SELFPAY ==
[2025-06-09 07:40] VITALS: BP 102/60; PULSE 67; O2SAT 100; BMI 40.6
--- NOTE | 2025-06-09 07:40 | AM.OFFWIN_ITS ---
Intake Vital Signs 06/09/25 07:40 Height 5 ft 2 in Weight 222 lb BMI 40.6 BP 102/60 Blood Pressure Location Rt brachial Position Sitting Pulse 67 Pulse Source Pulse Oximeter Pulse Oximetry (%) 100 Oxygen Delivery Method Room Air Intake Visit Reasons: EP-diarrhea Intake Note: presents with diarrhea flares for a few months. h/p cholecystectomy & ciliac disease. states last flare was a couple days. Patient Tobacco Use Status: Never used Tobacco Allergies sulfamethoxazole (From BACTRIM) Allergy (Mild, Verified 06/09/25 07:44) SEVERE MIGRAINES trimethoprim (From BACTRIM) Allergy (Mild, Verified 06/09/25 07:44) SEVERE MIGRAINES Sulfa (Sulfonamide Antibiotics) Allergy (Unknown, Verified 06/09/25 07:44) SEVERE MIGRAINES, migraines, migraines NSAIDS (Non-Steroidal Anti-Inflamma Adverse Reaction (Verified 06/09/25 07:44) unable to take 2/2 gastric sleeve Do you need a note to return to daycare/school/sports/work: No HPI HPI Comments History of Present Illness0 Details History of Present Illness - The patient is a 40-year-old female pr esenting with persistent diarrhea. - The diarrhea has been ongoing for a fe w months, occurring sporadically regardless of dietary intake, including both high-fat and low-fat foods. - The patient follows a strict gluten-fr ee diet due to celiac disease, diagnosed in 2019, and reports low risk of cross-contamination at home. - She underwent cholecystectomy last , and symptoms have persisted since then, suggesting post-cholecystectomy syndrome. - Occasional bloody stools have been not ed, possibly due to hemorrhoids, with no associated fever, n,v or significant weight loss. - There is a family history of celiac di ana maria and a cousin with colon cancer, prompting consideration for further gastrointestinal evaluation. Physical Exam General: Cooperative, healthy appearing, comfortable, no acute distress and well developed Orientation: Patient oriented x3 Limitations: No limitations Head: Normal to inspection Ears: Hearing grossly normal bilaterally Nose: Normal External nose present Face and sinus: Normal facial exam Eyes: Appearance normal, both eyes and all related structures Neck: Normal visual inspection and Yes full ROM Respiratory: Normal respiratory effort and able to speak in complete sentences. Skin: No rashes or lesions noted Neuro: Patient oriented x3 Extremities: Normal to inspection [facility] Medical History (Updated 06/09/25 @ 08:00 by Carmel Flannery PA-C) Pancreatitis, gallstone History of miscarriage, not currently Cervical polyp Malabsorption due to intolerance, not elsewhere classified Surgical History (Updated 04/28/24 @ 13:55 by Deon Mckenna [facility]) Hx laparoscopic cholecystectomy History of sleeve gastrectomy Hx of wisdom tooth extraction Family History Father Hypertension Substance use disorder Mother Alcoholism S/P panniculectomy Active asthma Hypertension Substance use disorder Mental health disorder Sister Alcoholism Hypertension Mental health disorder Social History (Reviewed 11/23/22 @ 07:47 by KIMBERLY [facility] Housing: Apartment Alcohol intake: never Patient Tobacco Use Status: Never used Tobacco e-Cigarette/Vaping Use: Never Used Second Hand Smoke Exposure: No service: No Current occupational status: employed Current occupation: [employer] [place] Current occupational exposures/hazards: No Cognitive needs: No Hearing needs: No Vision needs: No Review of Systems Const All systems reviewed & are unremarkable except as noted in HPI and below Physical Exam Vital Signs: Last Vital Signs Pulse 67 06/09/25 07:40 BP 102/60 06/09/25 07:40 Pulse Ox 100 06/09/25 07:40 Oxygen Delivery Method Room Air 06/09/25 07:40 BMI result Body Mass Index 40.6 Assessment & Plan Assessment & Plan (1) Diarrhea: Code(s): R19.7 - Diarrhea, unspecified Qualifiers: Diarrhea type: unspecified type Qualified Code(s): R19.7 - Diarrhea, unspecified Plan: Plan - VSS, pt well appearing, she is very well versed with Celiac disease so I have no doubt she is following a proper diet and her diarrhea is not due to mistakenly eating gluten. She is also s/p cholecystectomy and fat content of the meal does not affect the diarrhea. - A gastrointestinal panel will be conducted to rule out any infectious causes of diarrhea. - If the panel is negative, a referral to gastroenterology will be made for further evaluation, potentially including a colonoscopy, with her hx of celiac and her family hx of colon cancer. Will need to ask Deon to send it. Patient was informed and verbally consented to the use of an ambient scribe for clinic note documentation during this visit. Orders: Orders GI Panel Today R19.7 - Diarrhea, unspecified Coding Level of Care Code Est Pt Level 3 (42706) Diagnoses Diarrhea, unspecified type R19.7 Diarrhea type: unspecified type
== END 2025-06-09 08:19 | disposition home or self-care (01) ==
PROVIDERS: PCP Nurse Practitioner Family; Visit Provider Physician Assistant
DX: R19.7 Diarrhea, unspecified (principal)

== ENCOUNTER 2025-06-09 07:35 | Outpatient (REF) | payer BC, SELFPAY ==
--- OUTSIDE RECORDS SUMMARY | 2025-06-09 07:59 | XMS_ITS | Encounter Summary ---
Author Organization [facility] Address [address] [place] [id number] Phone Care Team Providers Care Mixer And Scaler Name Role Phone Haroldo Marroquin MD Primary Care Provider [phone] Deon Mckenna NP Primary Care Provider + Encounter Details Date Type Department Care Team (Latest Contact Info) Description 10/03/2017 Ancillary Orders Virtual Department [address] [place] [address] Yue Link MD [address] [place] [address] [email or web address] Bilateral papilledema due to raised intracranial pressure Social History Tobacco Use Types Packs/Day Years Used Date Smoking Tobacco: Never Assessed Comments Unknown Sex and Gender Information Value Date Recorded Sex Assigned at Female 08/01/2020 8:18 PM EDT Legal Sex Female 8:35 AM EST Gender Identity Female 08/01/2020 8:18 PM EDT Sexual Orientation Pansexual 09/28/2021 10 :21 AM EST documented as of this encounter Plan of Treatment Not on file documented as of this encounter Results * MRI BRAIN WITH AND WITHOUT CONTRAST (10/06/2017 7:41 PM EST) Anatomical Region Laterality Modality Head Magnetic Resonan ce 10/06/2017 8:04 PM EST Impressions 10/06/2017 8:10 PM EST No discrete mass or other significant intracranial pathology apparent. POS - [id number] Narrative 10/06/2017 8:10 PM EST TECHNIQUE: Exam performed on a 1.5 Harmony high-field MRI scanner. Axial T1, T2, T2 FLAIR, T2 GRE, and diffusion-weighted with ADC map, sagittal T1, followed by post-gadolinium axial T1 and thin section coronal T1 through the orbits and anterior fossa sequences were obtained. FINDINGS: No prior comparison studies are available. There is no evidence of intracranial hemorrhage, ischemia, or mass. The brain parenchyma displays essentially normal cam-white matter signal intensity and distribution. No zone of pathologic contrast enhancement is noted. Ventricles and cerebral sulci are within normal limits in size. Cerebellar tonsils are not ectopic. 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 No gross intraorbital lesion apparent. Optic chiasm unremarkable in appearance. Normal flow-voids are apparent in the major intracranial arteries at the base. Probable small mucous retention cysts in the base of the right maxillary antrum with the paranasal sinuses and mastoid air cells otherwise clear. Procedure Note Chaz Jimenez MD - 10/06/2017 TECHNIQUE: Exam performed on a 1.5 Harmony high-field MRI scanner. AxialT1, T2, T2 FLAIR, T2 GRE, and diffusion-weighted with ADC map, sagittalT1, followed by post-gadolinium axial T1 and thin section coronal [id number] the orbits and anterior fossa sequences were obtained. FINDINGS: No prior comparison studies are available. There is no evidence ofintracranial hemorrhage, ischemia, or mass. The brain parenchyma displaysessentially normal cam-white matter signal intensity and distribution.No zone of pathologic contrast enhancement is noted. Ventricles andcerebral sulci are within normal limits in size. Cerebellar tonsils arenot ectopic. There is flattening of the pituitary gland consistent withincidental incompetent diaphragmatic sella. No gross intraorbital lesionapparent. Optic chiasm unremarkable in appearance. Normal flow-voids areapparent in the major intracranial arteries at the base. Probable smallmucous retention cysts in the base of the right maxillary antrum with theparanasal sinuses and mastoid air cells otherwise clear. IMPRESSION: No discrete mass or other significant intracranial pathology apparent. POS - [id number] Yue Link MD IMG MR HEAD/NECK Final Result documented in this encounter Visit Diagnoses Diagnosis Bilateral papilledema due to raised intracranial pressure Bilateral papilledema due to raised intracranial pressure documented in this encounter Additional Health Concerns Infection Onset Date Last Indicated Resolved Time CoV-Risk 08/28/2022 08/28/2022 09/08/2022 1:57 AM EST documented as of this encounter Care Teams Mixer And Scaler Relationship Specialty Start Date End Date Haroldo Marroquin MD PCP - General Internal Medicine 10/03/17 12/26/18 Deon Mckenna NP [facility] [place] [address] PCP - General Family Medicine 12/27/18 documented as of this encounter Additional Source Comments The information contained in this document represents components of the legal health record. It is not the complete legal health record.[facility]
== END 2025-06-09 07:36 | disposition home or self-care (01) ==
LOC: HO.LAB 07:35
PROVIDERS: PCP Nurse Practitioner Family
DX: Z13.89 Encounter for screening for other disorder (principal)

== ENCOUNTER 2025-06-14 08:15 | Outpatient (REF) | payer BC, SELFPAY ==
--- OUTSIDE RECORDS SUMMARY | 2025-06-14 10:15 | XMS_ITS | Encounter Summary ---
Author Organization [facility] Address [address] [place] [address] Phone Care Team Providers Care Consumer Safety Inspector Name Role Phone Haroldo Marroquin MD Primary Care Provider +1- [phone] Deon Mckenna NP Primary Care Provider + Encounter Details Date Type Department Care Team (Latest Contact Info) Description 10/03/2017 Ancillary Orders Virtual Department [address] [place] [address] Yue Link MD [address] [place] [address] Bilateral papilledema due to raised intracranial pressure [...] other significant intracranial pathology apparent. POS - [id number] Narrative 10/06/2017 8:10 PM EST TECHNIQUE: Exam [...] post-gadolinium axial T1 and thin section coronal [id number] the orbits and anterior fossa sequences were [...] other significant intracranial pathology apparent. POS - [id number] Yue Link MD IMG MR HEAD/NECK Final Result documented in this encounter Visit Diagnoses Diagnosis Bilateral papilledema due to raised intracranial pressure Bilateral papilledema due to raised intracranial pressure documented in this encounter Additional Health Concerns Infection Onset Date Last Indicated Resolved Time CoV-Risk 08/28/2022 08/28/2022 09/08/2022 1:57 AM EST documented as of this encounter Care Teams Consumer Safety Inspector Relationship Specialty Start Date End Date Haroldo Marroquin MD PCP - General Internal Medicine 10/03/17 12/26/18 Deon Mckenna NP [facility] [place] [address] PCP - General Family Medicine 12/27/18 documented as of this encounter Additional Source Comments The information contained in this document represents components of the legal health record. It is not the complete legal health record.[facility]
[2025-06-14 13:24] LABS: E. coli EAEC Not Detected (Not Detect.); E. coli EPEC Not Detected (Not Detect.); E. coli ETEC Not Detected (Not Detect.); E. coli STEC Not Detected (Not Detect.); Shigella sp./EIEC Not Detected (Not Detect.)
== END 2025-06-14 08:16 | disposition home or self-care (01) ==
LOC: HO.HMGCLNP 08:15
PROVIDERS: Visit Provider Physician Assistant
DX: R19.7 Diarrhea, unspecified (principal)
CPT/HCPCS: 87507

== ENCOUNTER 2025-06-17 12:50 | Outpatient (AMB) | payer BC, SELFPAY ==
--- NOTE | 2025-06-17 12:56 | MHC.OFFVISWM ---
VS Expanded 06/17/25 13:07 BP 124/59 L Blood Pressure Location Rt brachial Blood Pressure Position Sitting Pulse 75 Pulse Source Pulse Oximeter Temp 97.1 F Temperature Source Temporal Artery Scan Pulse Oximetry 97 Oxygen Delivery Method Room Air Height 5 ft 2 in Weight 216 lb 3.2 oz BMI 39.5 Body Fat % 44.6 Body Fat Mass 96.4 Fat Free Mass 119.8 Visceral Fat Rating 12.0 Body Water % 39.7 Body Water Mass 85.8 Muscle Mass/Score 113.8 Basal Metabolic Rate/Score 1,690 Intake Visit Reasons: (OV) PO LSG 05/2019 Allergies sulfamethoxazole (From BACTRIM) Allergy (Mild, Verified 06/17/25 13:01) SEVERE MIGRAINES trimethoprim (From BACTRIM) Allergy (Mild, Verified 06/17/25 13:01) SEVERE MIGRAINES Sulfa (Sulfonamide Antibiotics) Allergy (Unknown, Verified 06/17/25 13:01) SEVERE MIGRAINES, migraines, migraines NSAIDS (Non-Steroidal Anti-Inflamma Adverse Reaction (Verified 06/17/25 13:01) unable to take 2/2 gastric sleeve Medication List - Last Reconciled 06/17/25 by AUDRA Bullock acetaminophen 650 mg PO Q4H PRN ascorbate calcium (vitamin C) 500 mg PO DAILY [b12 PO DAILY] biotin 2,500 mcg PO DAILY [Greg+D PO BID] lactobacillus combination no.9 (Adult 50 Plus Probiotic) PO DAILY [ MVI PO DAILY] sertraline 50 mg PO DAILY HPI Comments Details: This?is a?40?yo F who is s/p LSG 05/2019. Presents for 6 year postop visit. Was last seen in Jul 2022 during , weight was 199lbs. Weight today 216.2lbs. No complaints of nausea, emesis, abdominal pain or constipation. Rare reflux, started recently. Sometimes will get diarrhea after cholecystectomy which was summer 2023. She does have celiac disease also, will be going to GI. Has had some work instability, gained some weight during that time. Is currently working as a trade specialist. Present meal plan includes: no structured plan; will make a meal plan every week, has two young children so cooks for them tries to do shakes for breakfast, or cheese and fruit or deli meat with cheese/fruit or greenlandic muffin lunch is leftovers from the night before or vijay does try to make a homemade dinner- rice, carrots, chicken drumsticks tries to have protein first when having meals Exercise routine includes: nothing formal- difficult to get to the gym [facility] Medical History (Updated 06/09/25 @ 08:00 by Carmel Flannery PA-C) Pancreatitis, gallstone History of miscarriage, not currently Cervical polyp Malabsorption due to intolerance, not elsewhere classified Surgical History Hx laparoscopic cholecystectomy History of sleeve gastrectomy Hx of wisdom tooth extraction Family History Father Hypertension Substance use disorder Mother Alcoholism S/P panniculectomy Active asthma Hypertension Substance use disorder Mental health disorder Sister Alcoholism Hypertension Mental health disorder Social History Housing: Apartment Alcohol intake: never Patient Tobacco Use Status: Never used Tobacco e-Cigarette/Vaping Use: Never Used Second Hand Smoke Exposure: No service: No Current occupational status: employed Current occupation: [employer] Current occupational exposures/hazards: No Cognitive needs: No Hearing needs: No Vision needs: No Physical Exam Vital Signs: Last Vital Signs Temp 97.1 F 06/17/25 13:07 Pulse 75 06/17/25 13:07 BP 124/59 L 06/17/25 13:07 Pulse Ox 97 06/17/25 13:07 Oxygen Delivery Method Room Air 06/17/25 13:07 BMI result Body Mass Index 39.5 Assessment & Plan Assessment & Plan (1) History of sleeve gastrectomy: Comment: 2019 Code(s): Z90.3 - Acquired absence of stomach [part of] Category: Surgical (2) Obesity: Code(s): E66.9 - Obesity, unspecified Category: Medical Plan Pt feels she can make nutrition changes more easily than commit to a frequent exercise regimen. Gave [employer] info and encouraged her to follow a plan that allows 1 meal solid food per day as she feels that eating dinner with her family is important to her. We also discussed GLP1 medications risks/benefits, pt will reassess after next visit whether she wants to consider but I encouraged her (and she agreed) to hold off for now and make lifestyle changes first. Labs ordered. Can use Tums for reflux. RTC 3mo. Orders: Orders IRON PROFILE Today Z90.3 - Acquired absence of stomach [part of] Hemoglobin A1c Today Z90.3 - Acquired absence of stomach [part of] Complete Blood Count Auto Diff Today Z90.3 - Acquired absence of stomach [part of] Zinc Today Z90.3 - Acquired absence of stomach [part of] Comprehensive Met. Panel Today Z90.3 - Acquired absence of stomach [part of] Vitamin B1 Today Z90.3 - Acquired absence of stomach [part of] Vitamin A Today Z90.3 - Acquired absence of stomach [part of] Vitamin D 25-OH Total Today Z90.3 - Acquired absence of stomach [part of] Lipid Panel Today Z90.3 - Acquired absence of stomach [part of] Insulin Today Z90.3 - Acquired absence of stomach [part of] Vitamin B12 and Folate Today Z90.3 - Acquired absence of stomach [part of] C Reactive Protein Today Z90.3 - Acquired absence of stomach [part of] Ferritin Today Z90.3 - Acquired absence of stomach [part of] TSH reflex Free T4 Today Z90.3 - Acquired absence of stomach [part of] Referrals Gastroenterology Referral K90.41 - Non-celiac gluten sensitivity, R19.7 - Diarrhea, unspecified
[2025-06-17 13:07] VITALS: BP 124/59; PULSE 75; TEMP 36.2; O2SAT 97; BMI 39.5
--- OUTSIDE RECORDS SUMMARY | 2025-06-17 13:32 | XMS_ITS | Encounter Summary ---
Author Organization [facility] Address [address] [place] [address] Phone Care Team Providers Care Career Services Manager Name Role Phone Deon Mckenna NP Primary Care Provider + Encounter Details Date Type Department Care Team (Latest Contact Info) Description 08/02/2021 Transcribe Orders [facility] [address] [place] [address] Kyle Resendez CNM [address] [facility], [address] [place] [address] [email or web address] Recurrent loss (Primary Dx) Social History Tobacco Use Types Packs/Day Years Used Date Smoking Tobacco: Never Smokeless Tobacco: Never Alcohol Use Standard Drinks/Week Comments Not Currently 0 (1 standard drink = 0.6 oz pur e alcohol) Comments No Sex and Gender Information Value Date Recorded Sex Assigned at Female 08/01/2020 8:18 PM EDT Legal Sex Female 8:35 AM EST Gender Identity Female 08/01/2020 8:18 PM EDT Sexual Orientation Pansexual 09/28/2021 10 :21 AM EST documented as of this encounter Plan of Treatment Not on file documented as of this encounter Results * HCG (Quantitative, Blood) (08/04/2021 8:14 AM EDT) HCG BETA 5.7 mIU/mL [facility] Comment: Interpretation: FEMALE: Negative: Less than or equal to 1 mIU/mL. 4 Weeks Post Conception: 9.5 - 750 mIU/mL. 12 Weeks Post Conception: 19649 - 999501 mIU/mL. Blood 08/04/2021 8:14 AM EDT 08/04/2021 8:17 AM EDT us Kyle Resendez CN LAB BLOOD ORDERABLES Final R esult [address] [address] documented in this encounter Visit Diagnoses Diagnosis Recurrent loss- Primary documented in this encounter Additional Health Concerns Infection Onset Date Last Indicated Resolved Time CoV-Risk 08/28/2022 08/28/2022 09/08/2022 1:57 AM EST documented as of this encounter Care Teams Career Services Manager Relationship Specialty Start Date End Date Deon Mckenna NP [facility] [place] [address] PCP - General Family Medicine 12/27/18 documented as of this encounter Additional Source Comments The information contained in this document represents components of the legal health record. It is not the complete legal health record.[facility]
--- OUTSIDE RECORDS SUMMARY | 2025-06-17 13:32 | XMS_ITS | Encounter Summary ---
Author Organization [facility] Address [address] [place] [address] Phone Care Team Providers Care Electrician Wiring Name Role Phone Deon Mckenna EXTENSION DIVISION DIRECTOR Primary Care Provider + Encounter Details Date Type Department Care Team (Late st Contact Info) Description 04/17/2024 Procedure Pass OR Admitting Dept - Virtual Department [address] [place] [address] Social History Tobacco Use Types Packs/Day Years Used Date Smoking Tobacco: Never Passive Smoke Exposure: Never Smokeless Tobacco: Never Alcohol Use Standard Drinks/Week Comments Not Currently 0 (1 standard drink = 0.6 oz pur e alcohol) Education Answer Date Recorded Are you interested in more education? Not on felicita e 02/17/2023 Are you concerned about learning? Not on file 02/17/2023 No 02/17/2023 No 02/17/2023 Food Answer Date Recorded Within the past 6 months we worried whether our food would run out before we got money to buy more. Sometimes True 024 Within the past 6 months the food we bought just didn't last and we didn't have enough money to get more. Never True 03/24 Residential Stability Answer Date Recor ded What is your housing situation today? I have gerardo sing 04/15/2024 How many times have you move d in the past 12 months? Zero (I did not move) 04/15/2024 Paying for Meds Answer Date Recorded Do you have trouble paying for medicines? No 04/15/2024 Paying Utility Bills Answer Date Record ed Do you have trouble paying your heating or elect ricity bill? No 04/15/2024 Transportation Answer Date Recorded Has the lack of transportati on kept you from medical appointments or from getting medications? No 04/15/2024 Digital Access Answer Date Recorded No 04/15/2024 Yes 04/15/2024 Do you have reliable internet access at home? Ye s 04/15/2024 Do you have a device (e.g., phone, tablet, computer) with a working camera? Yes 04/15/2024 Intimate Partner Violence Answer Date R ecorded Are you denied basic needs s uch as food, clothing, or medical care? No 04/15/2024 In the past 12 months have y ou been in a relationship with a person who hurts, threatens, or tries to control you? No 04/15/2024 Are you denied basic needs s uch as food, clothing, or medical care? No 04/15/2024 In the past 12 months have y ou been in a relationship with a person who hurts, threatens, or tries to control you? No 04/15/2024 Comments No Sex and Gender Information Value Date Recorded Sex Assigned at Female 08/01/2020 8:18 PM EDT Legal Sex Female 8:35 AM EST Gender Identity Female 08/01/2020 8:18 PM EDT Sexual Orientation Pansexual 09/28/2021 10 :21 AM EST documented as of this encounter Plan of Treatment Not on file documented as of this encounter Visit Diagnoses Not on filedocumented in this encounter Care Teams Electrician Wiring Relationship Specialty Start Date End Date Deon Mckenna NP [address] [place] [address] PCP - General Family Medicine 12/27/18 documented as of this encounter Additional Source Comments The information contained in this document represents components of the legal health record. It is not the complete legal health record.[facility]
--- OUTSIDE RECORDS SUMMARY | 2025-06-17 13:32 | XMS_ITS | Encounter Summary ---
Author Organization [facility] Address [address] [place] [address] Phone Care Team Providers Care Electrician Front Name Role Phone Haroldo Marroquin MD Primary Care Provider +1- [phone] Deon Mckenna NP Primary Care Provider + Encounter Details Date Type Department Care Team (Latest Contact Info) Description 10/03/2017 Ancillary Orders Virtual Department [address] [place] [address] Yue Link MD [address] [place] [address] [email or web address] Bilateral papilledema due to raised intracranial pressure [...] other significant intracranial pathology apparent. POS - [id number] Narrative 10/06/2017 8:10 PM EST TECHNIQUE: Exam [...] post-gadolinium axial T1 and thin section coronal [id number] the orbits and anterior fossa sequences were [...] other significant intracranial pathology apparent. POS - [id number] Yue Link MD IMG MR HEAD/NECK Final Result documented in this encounter Visit Diagnoses Diagnosis Bilateral papilledema due to raised intracranial pressure Bilateral papilledema due to raised intracranial pressure documented in this encounter Additional Health Concerns Infection Onset Date Last Indicated Resolved Time CoV-Risk 08/28/2022 08/28/2022 09/08/2022 1:57 AM EST documented as of this encounter Care Teams Electrician Front Relationship Specialty Start Date End Date Haroldo Marroquin MD PCP - General Internal Medicine 10/03/17 12/26/18 Deon Mckenna NP [facility] [place] [address] PCP - General Family Medicine 12/27/18 documented as of this encounter Additional Source Comments The information contained in this document represents components of the legal health record. It is not the complete legal health record.[facility]
--- OUTSIDE RECORDS SUMMARY | 2025-06-17 13:32 | XMS_ITS | Encounter Summary ---
Author Organization [facility] Address [address] [place] [address] Phone Care Team Providers Care Integrity Consultant Name Role Phone Deon Mckenna NP Primary Care Provider + Encounter Details Date Type Department Care Team (Late st Contact Info) Description 07/18/2022 Ancillary Orders [facility] [address] [place] [address] Alycia Miner CNM [address] [facility], [address] [place] [phone] [email or web address] History of bariatric surgery Social History Tobacco Use Types Packs/Day Years Used Date Smoking Tobacco: Never Smokeless Tobacco: Never Alcohol Use Standard Drinks/Week Comments Not Currently 0 (1 standard drink = 0.6 oz pur e alcohol) Comments Yes Sex and Gender Information Value Date Recorded Sex Assigned at Female 08/01/2020 8:18 PM EDT Legal Sex Female 8:35 AM EST Gender Identity Female 08/01/2020 8:18 PM EDT Sexual Orientation Pansexual 09/28/2021 10 :21 AM EST documented as of this encounter Plan of Treatment Not on file documented as of this encounter Results * US OB GREATER THAN OR EQUAL TO 14 WEEKS FOLLOW-UP ONLY (07/18/2022 8:56 AM EDT) Anatomical Region Laterality Modality Abdomen, Pelvis, Uterus/Adnexa U ltrasound 07/18/2022 8:47 AM EDT Impressions 07/18/2022 4:52 PM EDT 1. Single live IUP in vertex presentation with an EFW of 1675 grams which is at the 42nd percentile. 2. The JOYCE is normal. Narrative 07/18/2022 4:52 PM EDT Procedure: US OB GREATER THAN OR EQUAL TO 14 WEEKS LIMITED 07/18/2022 8:20 AM US Indications: Growth, AMA, h/o bariatric surgery. Comparison: No relevant recent comparisons. Maternal age: 37 years. Technique: Transabdominal scan was performed. Color Doppler and M-mode imaging was performed to assess vascularity. FINDINGS: number: 1 position: Vertex Placental position: posterior Placental grade: 2 Heart Rate: 135.0 bpm Cervix: The cervix is suboptimally visualized secondary to head position. Reported LMP: Gestational Age by LMP: 31 weeks 0 day(s) Ultrasound EGA: 31 weeks 5 day(s) Ultrasound GAUTAM: 20220914 Established GAUTAM: [id number] BPD: 7.94 cm, consistent with 32 weeks 0 day(s) and 67% Head Circumference: 29.82 cm, consistent with 33 weeks 1 day(s) and 70% Abdominal Circumference: 26.41 cm, consistent with 30 weeks 4 day(s) and 32% Femur Length: 5.91 cm, consistent with 30 weeks 6 day(s) and 31% Estimated weight (EFW): 1675 grams +/- 3 lb11 oz. 42% based on established GAUTAM Hadlock. HC/AC: 1.13 FL/BPD: 0.74 FL/AC: 0.22 Quads: Amniotic Sac Quad 1 - 4.60 cm Amniotic Sac Quad 2 - 4.08 cm Amniotic Sac Quad 3 - 2.21 cm Amniotic Sac Quad 4 - 5.19 cm Amniotic Fluid Index - 16.08 cm Limited Assessment: The stomach, kidneys, urinary bladder and four-chamber heart were evaluated and normal. Tech Comments: Guo . EFW = 42%. Active fetus with normal fluid. Procedure Note Gabe Giraldo MD - 07/18/2022 Procedure: US OB GREATER THAN OR EQUAL TO 14 WEEKS LIMITED 07/18/2022 8:20AM US Indications: Growth, AMA, h/o bariatric surgery. Comparison: No relevant recent comparisons. Maternal age: 37 years. Technique: Transabdominal scan was performed. Color Doppler and M-modeimaging was performed to assess vascularity. FINDINGS: number: 1 position: Vertex Placental position: posterior Placental grade: 2 Heart Rate: 135.0 bpm Cervix: The cervix is suboptimally visualized secondary to headposition. Reported LMP: Gestational Age by LMP: 31 weeks 0 day(s) Ultrasound EGA: 31 weeks 5 day(s) Ultrasound GAUTAM: 20220914 Established GAUTAM: [id number] BPD: 7.94 cm, consistent with 32 weeks 0 day(s) and 67% Head Circumference: 29.82 cm, consistent with 33 weeks 1 day(s) and 70% Abdominal Circumference: 26.41 cm, consistent with 30 weeks 4 day(s) and32% Femur Length: 5.91 cm, consistent with 30 weeks 6 day(s) and 31% Estimated weight (EFW): 1675 grams +/- 3 lb11 oz. 42% based on established GAUTAM Hadlock. HC/AC: 1.13 FL/BPD: 0.74 FL/AC: 0.22 Quads: Amniotic Sac Quad 1 - 4.60 cm Amniotic Sac Quad 2 - 4.08 cm Amniotic Sac Quad 3 - 2.21 cm Amniotic Sac Quad 4 - 5.19 cm Amniotic Fluid Index - 16.08 cm Limited Assessment: The stomach, kidneys, urinary bladder andfour- chamber heart were evaluated and normal. Tech Comments: Guo . EFW = 42%. Active fetus with normal fluid. IMPRESSION: 1. Single live IUP in vertex presentation with an EFW of 1675 grams whichis at the 42nd percentile. 2. The JOYCE is normal. us Alycia Miner CNM González US OBSTETRIC Final Result documented in this encounter Visit Diagnoses Diagnosis History of bariatric surgery Bariatric surgery status History of bariatric surgery Bariatric surgery status documented in this encounter Additional Health Concerns Infection Onset Date Last Indicated Resolved Time CoV-Risk 08/28/2022 08/28/2022 09/08/2022 1:57 AM EST documented as of this encounter Care Teams Integrity Consultant Relationship Specialty Start Date End Date Deon Mckenna NP [address] [place] [address] [place] [address] PCP - General Family Medicine 12/27/18 documented as of this encounter Additional Source Comments The information contained in this document represents components of the legal health record. It is not the complete legal health record.[facility]
--- OUTSIDE RECORDS SUMMARY | 2025-06-17 13:32 | XMS_ITS | Encounter Summary ---
Author Organization [facility] Address [address] [place] [address] Phone Care Team Providers Care Client Solutions Specialist Name Role Phone Haroldo Marroquin MD Primary Care Provider +1- [phone] Deon Mckenna NP Primary Care Provider + Encounter Details Date Type Department Care Team (Late st Contact Info) Description 02/09/2018 Procedure Pass [facility], Ct Scan - [address] [address] Social History Tobacco Use Types Packs/Day Years [...] Diagnoses Not on filedocumented in this encounter Additional Health Concerns Infection Onset Date Last Indicated Resolved Time CoV-Risk 08/28/2022 08/28/2022 09/08/2022 1:57 AM EST documented as of this encounter Care Teams Client Solutions Specialist Relationship Specialty Start Date End Date Haroldo Marroquin MD [email or web address] PCP - General Internal Medicine 10/03/17 12/26/18 Deon Mckenna NP [facility] [place] [address] PCP - General Family Medicine 12/27/18 documented as of this encounter Additional Source Comments The information contained in this document represents components of the legal health record. It is not the complete legal health record.[facility]
--- OUTSIDE RECORDS SUMMARY | 2025-06-17 13:32 | XMS_ITS | Encounter Summary ---
Author Organization [facility] Address [address] [facility] [address] [place] [address] Phone Care Team Providers Care Account Leader Name Role Phone Haroldo Marroquin MD Primary Care Provider +1- [phone] Deon Mckenna NP Primary Care Provider + Encounter Details Date Type Department Care Team (Late st Contact Info) Description 10/03/2017 Procedure Pass [facility], [address] [address] Social History Tobacco Use Types Packs/Day Years Used Date Smoking Tobacco: Never Assessed Comments Unknown Sex and Gender Information Value Date Recorded Sex Assigned at Female 08/01/2020 8:18 PM EDT Legal Sex Female 8:35 AM EST Gender Identity Female 08/01/2020 8:18 PM EDT Sexual Orientation Pansexual 09/28/2021 10 :21 AM EST documented as of this encounter Last Filed Vital Signs Vital Sign Reading Time Taken Comments Blood Pressure - - Pulse - - Temperature - - Respiratory Rate - - Oxygen Saturation - - Inhaled Oxygen Concentration - - Weight 129.3 kg (285 lb) 10/04/2017 2:15 PM EST Height 157.5 cm (5' 2 ) 10/04/2017 2:15 PM EST Body Mass Index 52.13 10/04/2017 2:15 PM EST documented in this encounter Plan of Treatment Not on file documented as of this encounter Visit Diagnoses Not on filedocumented in this encounter Additional Health Concerns Infection Onset Date Last Indicated Resolved Time CoV-Risk 08/28/2022 08/28/2022 09/08/2022 1:57 AM EST documented as of this encounter Care Teams Account Leader Relationship Specialty Start Date End Date Haroldo Marroquin MD [email or web address] PCP - General Internal Medicine 10/03/17 12/26/18 Deon Mckenna NP [facility] [place] [address] PCP - General Family Medicine 12/27/18 documented as of this encounter Additional Source Comments The information contained in this document represents components of the legal health record. It is not the complete legal health record.[facility]
--- OUTSIDE RECORDS SUMMARY | 2025-06-17 13:32 | XMS_ITS | Encounter Summary ---
Author Organization [facility] Address [address] [place] [address] Phone Care Team Providers Care Production Machine Tender Name Role Phone Deon Mckenna FOREIGN CORRESPONDENT Primary Care Provider + Encounter Details Date Type Department Care Team (Late st Contact Info) Description 04/15/2024 Procedure Pass [facility], Ct Scan - [facility] [address] [place] [address] Social History Tobacco Use Types Packs/Day Years [...] AM EST documented as of this encounter Functional Status * Calculated C-SSRS Risk Score (Lifetime/Recent) Answer Date of Assessment Author No Risk Indicated 04/15/2024 5:00 AM EDT Bella Estrada RN * [place] Suicide Severity Rating Scale (Screener/Recent Self-Report) Question Answer Date of Assessment Author 1. Wish to be (Past 1 Month) No 04/15/2024 5:00 AM CHUCHOT Violetta Estrada RN 2. Non-Specific Active Suici bella Thoughts (Past 1 Month) No 04/15/2024 5:00 AM EDT Charbel Estrada RN 6. Suicidal Behavior (Lifetime) No 5:00 AM EDT Ahoussi, Bella, RN documented as of this encounter Plan of Treatment Not on file documented as of this encounter Visit Diagnoses Not on filedocumented in this encounter Care Teams Production Machine Tender Relationship Specialty Start Date End Date Deon Mckenna NP [address] [place] [address] PCP - General Family Medicine 12/27/18 documented as of this encounter Additional Source Comments The information contained in this document represents components of the legal health record. It is not the complete legal health record.[facility]
--- OUTSIDE RECORDS SUMMARY | 2025-06-17 13:32 | XMS_ITS | Encounter Summary ---
Author Organization [facility] Address [address] [place] [id number] Phone Care Team Providers Care Renewable Energy Consultant Name Role Phone Haroldo Marroquin MD Primary Care Provider [phone]- [phone] Deon Mckenna NP Primary Care Provider + Encounter Details Date Type Department Care Team (Late st Contact Info) Description 02/09/2018 Procedure Pass [facility], Ct Scan - [address] [address] Social History Tobacco Use Types Packs/Day Years [...] documented as of this encounter Care Teams Renewable Energy Consultant Relationship Specialty Start Date End Date Haroldo Marroquin MD [email or web address] PCP - General Internal Medicine 10/03/17 12/26/18 Deon Mckenna NP [facility] [place] [address] PCP - General Family Medicine 12/27/18 documented as of this encounter Additional Source Comments The information contained in this document represents components of the legal health record. It is not the complete legal health record.[facility]
--- OUTSIDE RECORDS SUMMARY | 2025-06-17 13:32 | XMS_ITS | Encounter Summary ---
Author Organization [facility] Address [address] [place] [address] Phone Care Team Providers Care Inside Sales Engineer Name Role Phone Haroldo Marroquin MD Primary Care Provider [phone]- [phone] Deon Mckenna NP Primary Care Provider + Reason for Referral * MRI/CAT Scan - Closed Specialty Diagnoses / Procedures Referred By Arti vargas Referred To Contact Radiology Diagnoses Pulsatile tinnitus of right ear Dizziness and giddiness Procedures CT Angio Neck Jay Travis MD [address] [place] [address] [place] [address] Phone: tel: fax: mailto:[email or web address] Referral ID Status Reason Start Date Expiration Date Visits Re quested Visits Authorized [id number] Closed 02/08/2018 04/09/2018 1 1 * MRI/CAT Scan - Closed Specialty Diagnoses / Procedures Referred By Arti vargas Referred To Contact Radiology Diagnoses Dizziness and giddiness Pulsatile tinnitus of right ear Procedures CT Angio Head Jay Travis MD [address] [email or web address] [address] [address] Phone: tel: fax: mailto:[email or web address] Referral ID Status Reason Start Date Expiration Date Visits Re quested Visits Authorized [id number] Closed 02/08/2018 04/09/2018 1 1 Encounter Details Date Type Department Care Team (Late st Contact Info) Description 02/09/2018 Ancillary Orders Virtual Department [address] [place] [address] Jay Travis MD [address] [facility], [address] [place] [address] [email or web address] Dizziness and giddiness; Pulsatile tinnitus of right ear Social History Tobacco Use Types Packs/Day Years [...] documented as of this encounter Results * CT ANGIO NECK WITH AND WITHOUT CONTRAST (03/14/2018 2:46 PM EDT) Anatomical Region Laterality Modality Neck Computed Tomogra phy 03/14/2018 2:59 PM EDT Impressions 03/14/2018 3:08 PM EDT No evidence of carotid dissection, focal aneurysm, or significant stenosis. Nonspecific right-sided level IIA lymphadenopathy, which could be correlated with clinical findings. TOTAL CTDIvol: 101.70 mGy POS -[id number] Narrative 03/14/2018 3:08 PM EDT COMPARISON:None TECHNIQUE: Precontrast views were obtained in preparation for CT angiogram. Rapid intravenous contrast administration was then performed with multidetector CT obtained from skull base to thoracic inlet. Multiplanar angiographic reformats are evaluated on the workstation. 3-D modeling generated at CT workstation. Automated exposure control utilized. FINDINGS: Study slightly limited by patient body habitus. No calcific carotid plaquing is demonstrated. No focal, and carotid or internal carotid stenoses demonstrated. No evidence of aneurysm or dissection. Vertebral arteries appear to be patent. Visualized great vessels are unremarkable. No thyroid or salivary gland mass are demonstrated. Prevertebral soft tissues are not thickened. There are a few enlarged right cervical chain nodes measuring approximately 11 mm in long axis at the level of the mandibular angle and 2.0 cm immediately caudal to this level. No supraclavicular or left-sided lymphadenopathy apparent. No traumatic or destructive skeletal lesions are noted. Visualized lung apices are clear. Procedure Note Chaz Jimenez MD - 03/14/2018 COMPARISON:None TECHNIQUE: Precontrast views were obtained in preparation for CTangiogram. Rapid intravenous contrast administration was then performedwith multidetector CT obtained from skull base to thoracic inlet.Multiplanar angiographic reformats are evaluated on the workstation. 3-Dmodeling generated at CT workstation. Automated exposure controlutilized. FINDINGS: Study slightly limited by patient body habitus. No calcific carotidplaquing is demonstrated. No focal, and carotid or internal carotidstenoses demonstrated. No evidence of aneurysm or dissection. Vertebralarteries appear to be patent. Visualized great vessels areunremarkable. No thyroid or salivary gland mass are demonstrated. Prevertebral softtissues are not thickened. There are a few enlarged right cervical chainnodes measuring approximately 11 mm in long axis at the level of themandibular angle and 2.0 cm immediately caudal to this level. Nosupraclavicular or left-sided lymphadenopathy apparent. No traumatic ordestructive skeletal lesions are noted. Visualized lung apices areclear. IMPRESSION: No evidence of carotid dissection, focal aneurysm, or significantstenosis. Nonspecific right-sided level IIA lymphadenopathy, which couldbe correlated with clinical findings. TOTAL CTDIvol: 101.70 mGy POS -[id number] us Jay Travis MD [facility] CT HEAD/NECK Final Re sult * CT ANGIO HEAD WITH AND WITHOUT CONTRAST (03/14/2018 2:45 PM EDT) Anatomical Region Laterality Modality Neck Computed Tomogra phy 03/14/2018 3:08 PM EDT Addenda Addendum by Chaz Jimenez MD on 12/03/2018 10:24 AM EST No intracranial venous sinus or jugular vein thrombosis outlined. Follow-up MRV could be considered for more definitive evaluation if felt to be clinically warranted. Impressions 03/14/2018 3:22 PM EDT The right jugular bulb is enlarged relative to the left which could be correlated with clinical findings. I do not identify dehiscence, aberrant course of the right carotid artery, or other specific etiology of pulsatile tinnitus. No discrete paraganglioma was apparent on prior MR of 10/06/2017. TOTAL CTDIvol: 101.70 mGy POS -[id number] Narrative 03/14/2018 3:22 PM EDT COMPARISON: Current CTA of neck and 10/06/2017 MR TECHNIQUE: Precontrast views were obtained in preparation for CT angiogram of the brain. Rapid intravenous contrast administration was then performed with multidetector CT obtained from the vertex to skull base. Multiplanar angiographic reformatted are evaluated on the workstation. Manual dose reduction technique tailored for patient and site of imaging (automated exposure control utilized). FINDINGS: Intracranial carotid arteries appear to be symmetric in course and caliber. No evidence of aneurysm or dissection. No definitive mass lesion is evident in the middle ear canals nor is there disruption of the ossicular chain apparent on either side. The right jugular bulb appears larger than the left but the sigmoid plate appears to be intact and I do not identify extension into the middle ear canal. No diverticulum apparent. No arteriovenous malformation or obvious AV fistula apparent. Distal vertebral and basilar arteries appear to be patent. Main trunks of the middle, anterior, and posterior cerebral arteries appear to be patent. No intracranial aneurysm identified. Procedure Note Chaz Jimenez MD - 03/14/2018 COMPARISON: Current CTA of neck and 10/06/2017 MR TECHNIQUE: Precontrast views were obtained in preparation for CT angiogramof the brain. Rapid intravenous contrast administration was thenperformed with multidetector CT obtained from the vertex to skull base.Multiplanar angiographic reformatted are evaluated on the workstation.Manual dose reduction technique tailored for patient and site of imaging(automated exposure control utilized). FINDINGS: Intracranial carotid arteries appear to be symmetric in course andcaliber. No evidence of aneurysm or dissection. No definitive masslesion is evident in the middle ear canals nor is there disruption of theossicular chain apparent on either side. The right jugular bulb appearslarger than the left but the sigmoid plate appears to be intact and I donot identify extension into the middle ear canal. No diverticulumapparent. No arteriovenous malformation or obvious AV fistula apparent. Distal vertebral and basilar arteries appear to be patent. Main trunksof the middle, anterior, and posterior cerebral arteries appear to bepatent. No intracranial aneurysm identified. IMPRESSION: The right jugular bulb is enlarged relative to the left which could becorrelated with clinical findings. I do not identify dehiscence, aberrantcourse of the right carotid artery, or other specific etiology ofpulsatile tinnitus. No discrete paraganglioma was apparent on prior MR of10/06/2017. TOTAL CTDIvol: 101.70 mGy POS -[id number] Jay Travis MD IMG CT HEAD/NECK Edited R esult - Final documented in this encounter Visit Diagnoses Diagnosis Dizziness and giddiness Pulsatile tinnitus of right ear Dizziness and giddiness Pulsatile tinnitus of right ear Pulsatile tinnitus of right ear Dizziness and giddiness documented in this encounter Additional Health Concerns Infection Onset Date Last Indicated Resolved Time CoV-Risk 08/28/2022 08/28/2022 09/08/2022 1:57 AM EST documented as of this encounter Care Teams Inside Sales Engineer Relationship Specialty Start Date End Date Haroldo Marroquin MD PCP - General Internal Medicine 10/03/17 12/26/18 Deon Mckenna NP [address] [address] PCP - General Family Medicine 12/27/18 documented as of this encounter Additional Source Comments The information contained in this document represents components of the legal health record. It is not the complete legal health record.[facility]
--- OUTSIDE RECORDS SUMMARY | 2025-06-17 13:32 | XMS_ITS | Encounter Summary ---
Author Organization [facility] Address [address] [place] [address] Phone Care Team Providers Care Ic Design Manager Name Role Phone Deon Mckenna NP Primary Care Provider + Encounter Details Date Type Department Care Team (Late st Contact Info) Description 04/15/2024 Procedure Pass [facility], [address] [address] Social History Tobacco Use Types Packs/Day Years [...] 5:00 AM EDT Bella Estrada RN * [place] Suicide Severity Rating Scale (Screener/Recent Self-Report) Question [...] on filedocumented in this encounter Care Teams Ic Design Manager Relationship Specialty Start Date End Date Deon Mckenna NP [facility] [place] [address] PCP - General Family Medicine 12/27/18 documented as of this encounter Additional Source Comments The information contained in this document represents components of the legal health record. It is not the complete legal health record.[facility]
--- OUTSIDE RECORDS SUMMARY | 2025-06-17 13:32 | XMS_ITS | Clinical Summary ---
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 week scan Note: Cx polyp also seen on speculum exam Supervision of normal first , antepartum 06/18/2020 11/02/2020 Overview (07/28/2020): MD No OB-CMI score has been filled out for this encounter. Growth u/s for recent gastric sleeve surgery (2019) Group PN care? * Rh positive GC/Chlam * PAP - 2018 [facility]ard, report seen, neg Tdap * Flu * Hgb * GTT * 28 wk Repeat RPR * GBS * PPBC * screening will have NT Vaginal bleeding in pregnanc y, first trimester 06/18/2020 11/02/2020 Overview (06/18/2020): Hx vaginal bleeding/spotting intermittently in first trimester. Viable IUP at 11 weeks on u/s. Small fibroid, ovarian cyst seen Assessment & Plan (07/08/2020 3:51 PM EDT): Friable cervical polyp on exam REcommend using endoloop (from OR ) to ligate as I am afraid of excess bleeding even if LEEP device is used, she agrees, will RTO for that next week and avoid sex Assessment & Plan (06/23/2020 4:40 PM EDT): We reviewed finding of possible cx polyp on first exam. Advised pelvic rest for now and MD evaluation in 2 weeks. Assessment & Plan (06/18/2020 11:48 AM EDT): We reviewed hx of vaginal bleeding, u/s findings this week and reassurance of viable IUP thus far. Advised to monitor bleeding and call if increased or accompanied by significant cramping or any other concerns. She will have OV/NT in 1-2 weeks. History of abnormal cervical Pap smear 06/18/2020 11/02/2020 Overview (06/18/2020): Pt reports hx of abnormal pap/positive HPV in the past several years at [facility] with colposcopy/bx, fol up etc including ? Plan for yearly paps. She believes her last pap was in 2019. Pap results/records not in those received - note made that we need those for review and to determine plan/timing of paps. Immunizations Immunization Administration Dates Next Due COVID-19 (Pre-08/14) Pfizer Vaccine, mRNA, PF 08/27/2021 Influenza Quadrivalent MDCK Preservative Free IM 07/09/2020,08/06/2019 Influenza Quadrivalent Prese rvative Free IM 07/22/2023,08/05/2022,07/20/2021,2017,08/05/2016 Influenza Quadrivalent w/ Preservative IM 08/29/2017 Tdap 07/17/2023,07/06/2022,02/21/2016 Varicella 10/27/2020,10/21/2020,09/23/2020 Family History Medical History Relation Comments Hypertension Father Melanoma Maternal Grandfather Hypertension Mother Prostate cancer Paternal Grandfather Diabetes Paternal Grandmother Relation Status Comments Father Alive Maternal Grandfather Mother Paternal Grandfather Alive Paternal Grandmother Social History Tobacco Use Types Packs/Day Years Used Date Smoking Tobacco: Never Passive Smoke Exposure: Never Smokeless Tobacco: Never Tobacco Cessation:Counseling Given: Not Answered Alcohol Use Standard Drinks/Week Comments Not Currently [...] Orientation Pansexual 09/28/2021 10 :21 AM EST Last Filed Vital Signs Vital Sign Reading Time Taken Comments Blood Pressure 98/62 10/22/2024 8:24 AM EST Pulse 69 04/30/2024 8:37 AM EDT Temperature 36.4 C (97.5 F) 04/30/2024 8:37 AM EDT Respiratory Rate 14 04/17/2024 11:20 AM EDT Oxygen Saturation 98% 04/30/2024 8:37 AM EDT Inhaled Oxygen Concentration - - Weight 97.2 kg (214 lb 3.2 oz) 10/22/2024 8:24 A M EST Height 157.5 cm (5' 2 ) 10/22/2024 8:24 AM EST Body Mass Index 39.18 10/22/2024 8:24 AM EST Plan of Treatment Health Maintenance Due Date Last Done Comments DEPRESSION SCREENING 1998 COVID-19 VACCINE ( season) 2024 08/27/2021, 12/11/2020, 11/20/2020 SCREENING FOR DIABETES 04/17/2027 04/17/2024 PAP SMEAR 11/03/2028 11/03/2023, 04/17/2019 Adult Td,Tdap Booster 07/17/2033 07/17/2023 , 07/06/2022, 02/21/2016 HIV ONE-TIME SCREENING (18-65 YEARS) Completed 02/04/2023 HEPATITIS C SCREENING Completed 04/15/2024 , 02/04/2023, 03/02/2022, Additional history exists SMOKING STATUS SCREENING (Once After 26 Yrs) Completed 10/22/2024 HEPATITIS A VACCINES Aged Out No long er eligible based on patient's age to complete this topic HIB VACCINES Aged Out No longer eligi ble based on patient's age to complete this topic MENINGOCOCCAL VACCINES (ACWY) Aged Out No longer eligible based on patient's age to complete this topic MENINGOCOCCAL VACCINES (B) Aged Out N o longer eligible based on patient's age to complete this topic PNEUMOCOCCAL VACCINES (0-49 years) Aged Out No longer eligible based on patient's age to complete this topic Medical Devices Not on file Procedures Procedure Name Priority Date/Time Associated Diagnosis Comments HEPATITIS C ANTIBODY, QUALITATIVE Timed 04/15/2024 3:48 PM EDT PAP TEST Routine 11/03/2023 12:00 AM EST from Last 3 Months or Most Recently Relevant to Health Maintenance Results * Hepatitis C antibody, qualitative (04/15/2024 3:48 PM EDT) HCV NON-REACTIV E NON-REACTI VE [facility] Blood 04/15/2024 3:48 PM EDT 04/15/2024 3:58 PM EDT us Emil Arboleda DO, MPH LAB BLOOD ORDERABLES Final Result [facility] [address], [place] [id number] * Pap Test (11/03/2023 12:00 AM EST) 11/03/2023 11/06/2023 9:2 4 AM EST Narrative SEE NARRATIVE - 11/08/2023 3:22 PM EST [address] [address] Custodian Athletic Equipment: Imani Aguilera MD ACADEMIC ASSISTANT Cytology Report FINAL DIAGNOSIS A. PAP SMEAR (SUREPATH) CE: SPECIMEN ADEQUACY: Satisfactory for evaluation; transformation zone present. INTERPRETATION: NEGATIVE FOR INTRAEPITHELIAL LESION OR MALIGNANCY. Electronically Signed Out By: ALIREZA Costa(ASCP) The Pap test is a screening test primarily for squamous cancers and precursors and has associated false-negative and false-positive results. New technologies such as liquid-based preparations may decrease but will not eliminate all false-negative results. Regular sampling and follow-up of unexplained clinical signs and symptoms are recommended to minimize false negative results. PROCEDURES/ADDENDA HPV Testing (Requested) Ordered Date: 11/06/2023 A. PAP SMEAR (SUREPATH) CE: Human Papilloma Virus Test NEGATIVE for high-risk Human Papilloma Virus types 16, 18, 45 and the Other high risk probe set (Includes 31, 33, 35, 39, 51, 52, 56, 58, 59, 66, 68) Note: Testing performed by [employer] Onclarity HR-HPV analysis. Clinical correlation is advised. This HPV test was performed at [facility], [address] [place] [address]. This test has been FDA approved for SurePath cervical cytology specimens. The accuracy and precision of this test for all other specimen sources has been verified in the Cytopathology Laboratory of the [facility] and has not been cleared or approved by the U.S. Food and Drug Administration. Clinical correlation is advised. CLINICAL HISTORY Date of Last Menstrual Period: 11-26-2022 Menstrual History: Other Clinical Conditions: Screening Pap SPECIMEN SOURCE A: PAP SMEAR (SUREPATH) CE Patient Name: MICKIE SANZ : 1985 (Age: 38) Sex: F Institution: [facility] Location: [facility] Date of Collection: 11/03/2023 Date of Reported: 11/08/2023 15:22 Results to: Naa HALL Naa HALLM CYTOLOGY ORDERABLES Final Result SEE NARRATIVE from Last 3 Months or Most Recently Relevant to Health Maintenance Insurance [facility] [place] [address] [address] [address] [place] [address] [place] [address] [place] [address] [place] [address] [place] [address] ACO [facility] [place] [place] [address] Member Subscriber Plan / Payer (Ef fective 2024-Present) Name:Mickie Sanz Relation to Subscriber:Self Name:UmuMickie Payer ID:[id number] (NAIC) Type:HMO Address: [address] [place] [address] [place] [address] Advance Directives For more information, please contact: [phone] (9AM - 5PM [facility], Monday-Monday) Documents on File Type Date Recorded Patient Steel Estimator Expl anation Healthcare Proxy 09/27/2022 12:31 PM * Full Code (Latest Code Status on File) Date Activated Date Inactivated Comments 04/15/2024 5:36 AM Question Answer Comments Code Status Confirmed With: Patient * Full Code Date Activated Date Inactivated Comments 09/02/2023 8:26 PM 04/15/2024 5:36 AM Question Answer Comments Code Status Confirmed With: Other (specify below ) * Full Code Date Activated Date Inactivated Comments 09/02/2023 12:13 PM 09/02/2023 8:26 PM Question Answer Comments Code Status Confirmed With: Patient * Full Code Date Activated Date Inactivated Comments 06/09/2023 6:20 PM 09/02/2023 12:13 PM Question Answer Comments Code Status Confirmed With: Patient * Full Code Date Activated Date Inactivated Comments 09/24/2022 7:00 AM 06/09/2023 6:20 PM Question Answer Comments Code Status Confirmed With: Patient Healthcare Agents on File Name Relationship [facility] Agent [facility] Lori Wilkinson Friend Alternate Hea lthcare Agent (Proxy form on file) Riley Mirza Life Partner .Primary Health Care Agent (Proxy form on file) Care Teams Business Analytics Analyst Relationship Specialty Start Date End Date Deon Mckenna NP [address] [address] PCP - General Family Medicine 12/27/18 Additional Source Comments The information contained in this document represents components of the legal health record. It is not the complete legal health record.[facility]
== END 2025-06-17 13:40 | disposition home or self-care (01) ==
LOC: HO.HBS 12:51
PROVIDERS: PCP Nurse Practitioner Family; Visit Provider Physician Assistant Surgical
DX: E66.9 Obesity, unspecified (principal); Z68.39 Body mass index [BMI] 39.0-39.9, adult; Z90.3 Acquired absence of stomach [part of]; Z98.84 Bariatric surgery status
CPT/HCPCS: 99214

== ENCOUNTER 2025-06-28 08:55 | Outpatient (REF) | payer BC, SELFPAY ==
--- OUTSIDE RECORDS SUMMARY | 2025-06-28 08:57 | XMS_ITS | Encounter Summary ---
Author Organization [facility] Address [address] [place] [address] Phone Care Team Providers Care Body Finisher Name Role Phone Deon Mckenna ART CRITIC Primary Care Provider + Encounter Details Date Type Department Care Team (Late st Contact Info) Description 04/15/2024 Procedure Pass [facility], Ct Scan - [facility] [address] [place] [address] Social History Tobacco Use Types Packs/Day Years [...] 5:00 AM EDT Bella Estrada RN * [place] Suicide Severity Rating Scale (Screener/Recent Self-Report) Question [...] on filedocumented in this encounter Care Teams Body Finisher Relationship Specialty Start Date End Date Deon Mckenna NP [address] [place] [address] PCP - General Family Medicine 12/27/18 documented as of this encounter Additional Source Comments The information contained in this document represents components of the legal health record. It is not the complete legal health record.[facility]
--- OUTSIDE RECORDS SUMMARY | 2025-06-28 08:57 | XMS_ITS | Encounter Summary ---
Author Organization [facility] Address [address] [place] [address] Phone Care Team Providers Care Manager Internet Name Role Phone Deon Mckenna NP Primary Care Provider + Encounter Details Date Type Department Care Team (Latest Contact Info) Description 08/02/2021 Transcribe Orders [facility] [address] [place] [address] Kyle Resendez CNM [address], [address] [place] [address] [email or web address] Recurrent loss (Primary Dx) Social History Tobacco [...] - 750 mIU/mL. 12 Weeks Post Conception: 74825 - 357291 mIU/mL. Blood 08/04/2021 8:14 AM EDT 08/04/2021 8:17 AM EDT us Kyle Resendez CN LAB BLOOD ORDERABLES Final R esult [address] [address] documented in this encounter Visit Diagnoses Diagnosis Recurrent loss- Primary documented in this encounter Additional Health Concerns Infection Onset Date Last Indicated Resolved Time CoV-Risk 08/28/2022 08/28/2022 09/08/2022 1:57 AM EST documented as of this encounter Care Teams Manager Internet Relationship Specialty Start Date End Date Deon Mckenna NP [facility] [place] [address] PCP - General Family Medicine 12/27/18 documented as of this encounter Additional Source Comments The information contained in this document represents components of the legal health record. It is not the complete legal health record.[facility]
--- OUTSIDE RECORDS SUMMARY | 2025-06-28 08:57 | XMS_ITS | Encounter Summary ---
Author Organization [facility] Address [address] [facility] [address] [place] [address] Phone Care Team Providers Care Retort Feeder Ground Bone Name Role Phone Haroldo Marroquin MD Primary Care Provider [phone]- [phone] Deon Mckenna NP Primary Care Provider + Encounter Details Date Type Department Care Team (Late st Contact Info) Description 10/03/2017 Procedure Pass [facility], [address] [address] Social History Tobacco Use Types Packs/Day Years [...] documented as of this encounter Care Teams Retort Feeder Ground Bone Relationship Specialty Start Date End Date Haroldo Marroquin MD [email or web address] PCP - General Internal Medicine 10/03/17 12/26/18 Deon Mckenna NP [facility] [place] [address] PCP - General Family Medicine 12/27/18 documented as of this encounter Additional Source Comments The information contained in this document represents components of the legal health record. It is not the complete legal health record.[facility]
--- OUTSIDE RECORDS SUMMARY | 2025-06-28 08:57 | XMS_ITS | Encounter Summary ---
Author Organization [facility] Address [address] [place] [address] Phone Care Team Providers Care Bar Waiter/Waitress Name Role Phone aHroldo Marroquin MD Primary Care Provider [phone]- [phone] Deon Mckenna NP Primary Care Provider + Encounter Details Date Type Department Care Team (Latest Contact Info) Description 10/03/2017 Ancillary Orders Virtual Department [address] [place] [address] Yue Link MD [address] [place] [address] [email or web address] Bilateral papilledema due to raised intracranial pressure [...] other significant intracranial pathology apparent. POS - [id number] Narrative 10/06/2017 8:10 PM EST TECHNIQUE: Exam [...] post-gadolinium axial T1 and thin section coronal [id number] the orbits and anterior fossa sequences were [...] other significant intracranial pathology apparent. POS - [id number] Yue Link MD IMG MR HEAD/NECK Final Result documented in this encounter Visit Diagnoses Diagnosis Bilateral papilledema due to raised intracranial pressure Bilateral papilledema due to raised intracranial pressure documented in this encounter Additional Health Concerns Infection Onset Date Last Indicated Resolved Time CoV-Risk 08/28/2022 08/28/2022 09/08/2022 1:57 AM EST documented as of this encounter Care Teams Bar Waiter/Waitress Relationship Specialty Start Date End Date Haroldo Marroquin MD PCP - General Internal Medicine 10/03/17 12/26/18 Deon Mckenna NP [facility] [place] [address] PCP - General Family Medicine 12/27/18 documented as of this encounter Additional Source Comments The information contained in this document represents components of the legal health record. It is not the complete legal health record.[facility]
--- OUTSIDE RECORDS SUMMARY | 2025-06-28 08:57 | XMS_ITS | Encounter Summary ---
Author Organization [facility] Address [address] [place] [address] Phone Care Team Providers Care Wide Area Network Administrator Name Role Phone Deon Mckenna NP Primary Care Provider + Encounter Details Date Type Department Care Team (Late st Contact Info) Description 04/15/2024 Procedure Pass [facility], [address] [address] Social History Tobacco Use Types Packs/Day Years [...] 5:00 AM EDT Bella Estrada RN * [place] Suicide Severity Rating Scale (Screener/Recent Self-Report) Question [...] on filedocumented in this encounter Care Teams Wide Area Network Administrator Relationship Specialty Start Date End Date Deon Mckenna NP [facility] [place] [address] PCP - General Family Medicine 12/27/18 documented as of this encounter Additional Source Comments The information contained in this document represents components of the legal health record. It is not the complete legal health record.[facility]
--- OUTSIDE RECORDS SUMMARY | 2025-06-28 08:57 | XMS_ITS | Encounter Summary ---
Author Organization [facility] Address [address] [facility] [address] [place] [address] Phone Care Team Providers Care Television News Anchor Name Role Phone Deon Mckenna NP Primary Care Provider + Encounter Details Date Type Department Care Team (Late st Contact Info) Description 07/18/2022 Ancillary Orders [facility] [address] [place] [address] Alycia Miner CNM [address] [facility], [address] [place] [address] [email or web address] History of bariatric surgery Social History Tobacco [...] documented as of this encounter Care Teams Television News Anchor Relationship Specialty Start Date End Date Deon Mckenna NP [address] [place] [address] [place] [address] PCP - General Family Medicine 12/27/18 documented as of this encounter Additional Source Comments The information contained in this document represents components of the legal health record. It is not the complete legal health record.[facility]
--- OUTSIDE RECORDS SUMMARY | 2025-06-28 08:57 | XMS_ITS | Encounter Summary ---
Author Organization [facility] Address [address] [place] [address] Phone Care Team Providers Care Qa Software Test Engineer Name Role Phone Deon Mckenna CONTENT STRATEGIST Primary Care Provider + Encounter Details Date Type Department Care Team (Late st Contact Info) Description 04/17/2024 Procedure Pass [place] Admitting Dept - Virtual Department [address] [place] [address] Social History Tobacco Use Types Packs/Day Years [...] on filedocumented in this encounter Care Teams Qa Software Test Engineer Relationship Specialty Start Date End Date Deon Mckenna NP [address] [place] [place] [address] PCP - General Family Medicine 12/27/18 documented as of this encounter Additional Source Comments The information contained in this document represents components of the legal health record. It is not the complete legal health record.[facility]
--- OUTSIDE RECORDS SUMMARY | 2025-06-28 08:57 | XMS_ITS | Encounter Summary ---
Author Organization [facility] Address [address] [facility] [address] [place] [address] Phone Care Team Providers Care Network Strategist Name Role Phone Haroldo Marroquin MD Primary Care Provider +1- [phone] Deon Mckenna NP Primary Care Provider + Encounter Details Date Type Department Care Team (Late st Contact Info) Description 02/09/2018 Procedure Pass [facility], Ct Scan - [address] [address] Social History Tobacco Use Types Packs/Day Years [...] documented as of this encounter Care Teams Network Strategist Relationship Specialty Start Date End Date Haroldo Marroquin MD [email or web address] PCP - General Internal Medicine 10/03/17 12/26/18 Deon Mckenna NP [facility] [place] [address] PCP - General Family Medicine 12/27/18 documented as of this encounter Additional Source Comments The information contained in this document represents components of the legal health record. It is not the complete legal health record.[facility]
--- OUTSIDE RECORDS SUMMARY | 2025-06-28 08:57 | XMS_ITS | Encounter Summary ---
Author Organization [facility] Address [address] [facility] [facility] [address] [place] [address] Phone Care Team Providers Care Donor Center Technician Name Role Phone Haroldo Marroquin MD Primary Care Provider +1- [phone] Deon Mckenna NP Primary Care Provider + Encounter Details Date Type Department Care Team (Late st Contact Info) Description 02/09/2018 Procedure Pass [facility], Ct Scan - [address] [address] Social History Tobacco Use Types Packs/Day Years [...] documented as of this encounter Care Teams Donor Center Technician Relationship Specialty Start Date End Date Haroldo Marroquin MD [email or web address] PCP - General Internal Medicine 10/03/17 12/26/18 Deon Mckenna NP [facility] [place] [address] PCP - General Family Medicine 12/27/18 documented as of this encounter Additional Source Comments The information contained in this document represents components of the legal health record. It is not the complete legal health record.[facility]
--- OUTSIDE RECORDS SUMMARY | 2025-06-28 08:57 | XMS_ITS | Clinical Summary ---
Author Organization [facility] Address [address] [place] [address] Phone Care Team Providers Care Intelligence Senior Sergeant Name Role Phone Deon Mckenna NP Primary [...] a lot and exhausted by plus active [id number]. Rec'd TDAP today. PP BCM discussed, they [...] her. Encouraged to keep taking to see long-term effects. We reviewed that there is always [...] (11/02/2020 2:27 PM EST): Previously referred to [facility], would be reasonable to pursue work up given obstetric history. Discussed periods, monitor next 1-2 cycles and follow up if bleeding pattern continues to be irregular. History of abnormal cervical Pap smear 0 Overview (05/12/2023): 2017 ASCUS/neg HPV ([place]) 2019: NIL/HPV neg Pap due at FOB--pt would like to defer to PP History of bariatric surgery 06/18/2020 Overview (08/02/2023): Gastric Sleeve 2019 [facility] Pt is meeting with dietitian at weight [...] F ertility and after bariatric surgery . [email or web address]-[email or web address]?sea rch=gastric%20bypass%20and%20pregnancy&source=search_result&selectedTitle=1~150& usage _type=default&display_rank=1 Assessment & Plan [...] recommended, reviewed alternative - discuss further at ne. Assessment & Plan (03/02/2022 4:25 PM EDT): Saw grain distributor and was low on iron. Rx for iron sent today Assessment & Plan (06/23/2020 4:37 PM EDT): Mickie is committed to following [facility] guidelines for nutrition/weight gain parameters during - [...] next week appointment. Advanced maternal age in [facility], second trimester 03/28/2023 09/24/2023 Overview (03/28/2023): AMA age >35 o Recommend daily baby aspirin if other risk factors are present (nulliparity, BMI >= 30, family h/o pre-eclampsia in mother or sister, previous with SGA infant, previous stillbirth, interval of >= 10 years [...] Gave info on spinning babies exercises and acute care nursing assistant Supervision of high risk pre gnancy in [...] She has Level II schedule 05/09 at [facility]. Also had Level 1 04/21 since this [...] SROM in second trimester Had D&E at [facility], records in [facility] Assessment & Plan (08/23/2020 3:19 PM EST): We reviewed the notes from [facility]; on their u/trasound, previa not confirmed (imaging limited Laminaria were placed and then D&E done, uncomplicated Discussed cause unknown; possibly due to infection as inflammation was on the path report Recommend consult with Dr Morrissey at [facility] for counseling for future , if any [...] Rh positive GC/Chlam * PAP - 2018 [facility], report seen, neg Tdap * Flu * [...] HPV in the past several years at [facility] with colposcopy/bx, fol up etc including [...] Date Last Done Comments DEPRESSION SCREENING 1998 INFLUENZA VACCINE (#1) 2025 , 07/22/2023, 08/05/2022, Additional history exists COVID-19 VACCINE (2024- season) 2025 08/27/2021, 12/11/2020, 11/20/2020 SCREENING FOR DIABETES 04/17/2027 [...] PM EDT) HCV NON-REACTIV E NON-REACTI VE [facility] Blood 04/15/2024 3:48 PM EDT 04/15/2024 3:58 PM EDT Emil Arboleda DO, MPH LAB BLOOD ORDERABLES Final Result Performing Organization Address City/State/ZIP Co de [facility] Number [address] [address] * Pap Test (11/03/2023 12:00 AM EST) 11/03/2023 11/06/2023 9:2 4 AM EST Narrative SEE NARRATIVE - 11/08/2023 3:22 PM EST [address] [address] Data Communications Engineer: Imani Aguilera MD PLANT PATHOLOGIST Cytology Report FINAL DIAGNOSIS A. PAP SMEAR [...] 59, 66, 68) Note: Testing performed by [facility] HR-HPV analysis. Clinical correlation is advised. This HPV test was performed at [facility], [address] [place] [address]. This test has been FDA approved for [facility] cervical cytology specimens. The accuracy and precision of this test for all other specimen sources has been verified in the Cytopathology Laboratory of the [facility] and has not been cleared or approved by the U.S. Food and Drug Administration. Clinical correlation is advised. CLINICAL HISTORY Date of Last Menstrual Period: 11-26-2022 Menstrual History: Other Clinical Conditions: Screening Pap SPECIMEN SOURCE A: PAP SMEAR (SUREPATH) CE Patient Name: MICKIE SANZ : 1985 (Age: 38) Sex: F Institution: [facility] Location: [facility] Date of Collection: 11/03/2023 Date of Reported: 11/08/2023 15:22 Results to: Naa HALL Naa HALLM CYTOLOGY ORDERABLES Final Result SEE NARRATIVE from Last 3 Months or Most Recently Relevant to Health Maintenance Insurance Member Subscriber Plan / Payer (Ef fective 2024-Present) Name:Mickie Sanz Relation to Subscriber:Self Name:Mickie Sanz Payer ID:[id number] (NAIC) Type:HMO Address: [address] [place] [address] [facility] [place] [address] [place] [address] [place] [address] [place] [address] [place] [place] [address] [place] [address] Advance Directives For more information, please contact: [phone] (9AM - 5PM [facility], Monday-Monday) Documents on File Type Date Recorded Patient Nursing Care Partner Expl anation Healthcare Proxy 09/27/2022 12:31 PM [...] Agents on File Name Relationship Healthcare Agent Relationshi p Communication Lori Wilkinson Friend Alternate Hea lthcare Agent (Proxy form on file) Riley Mirza Life Partner .Primary Health Care Agent (Proxy form on file) Care Teams Intelligence Senior Sergeant Relationship Specialty Start Date End Date Deon Mckenna NP [facility] [place] [address] PCP - General Family Medicine 12/27/18 Additional Source Comments The information contained in this document represents components of the legal health record. It is not the complete legal health record.[facility]
--- OUTSIDE RECORDS SUMMARY | 2025-06-28 08:57 | XMS_ITS | Encounter Summary ---
Author Organization [facility] Address [address] [place] [address] Phone Care Team Providers Care Methods Examiner Name Role Phone Haroldo Marroquin MD Primary Care Provider [phone]- [phone] Deon Mckenna NP Primary Care Provider + Reason for Referral * MRI/CAT Scan - Closed Specialty Diagnoses / Procedures Referred By Arti vargas Referred To Contact Radiology Diagnoses Pulsatile tinnitus of right ear Dizziness and giddiness Procedures CT Angio Neck Jay Travis MD [address] [place] [address] [place] [address] Phone: tel: fax: mailto:[email or web address] Referral ID Status Reason Start Date Expiration Date Visits Re quested Visits Authorized [id number] Closed 02/08/2018 04/09/2018 1 1 * MRI/CAT Scan - Closed Specialty Diagnoses / Procedures Referred By Arti vargas Referred To Contact Radiology Diagnoses Dizziness and giddiness Pulsatile tinnitus of right ear Procedures CT Angio Head Jay Travis MD [address] [employer] [address] [address] Phone: tel: fax: mailto:[email or web address] Referral ID Status Reason Start Date Expiration Date Visits Re quested Visits Authorized [id number] Closed 02/08/2018 04/09/2018 1 1 Encounter Details Date Type Department Care Team (Late st Contact Info) Description 02/09/2018 Ancillary Orders Virtual Department [address] [place] [address] Jay Travis MD [address] [place] [address] [email or web address] Dizziness and giddiness; Pulsatile tinnitus [...] mGy POS -[id number] us Jay Travis MD [facility] CT HEAD/NECK Final Re sult * CT [...] documented as of this encounter Care Teams Methods Examiner Relationship Specialty Start Date End Date Haroldo Marroquin MD PCP - General Internal Medicine 10/03/17 12/26/18 Deon Mckenna NP [address] [place] [address] PCP - General Family Medicine 12/27/18 documented as of this encounter Additional Source Comments The information contained in this document represents components of the legal health record. It is not the complete legal health record.[facility]
[2025-06-28 09:21] LABS: MANUAL DIFF FLAG NO
[2025-06-28 11:23] LABS: Hematocrit 36.3 % (37.0-47.0); Hemoglobin 11.1 g/dl (12.0-16.0); Imm Gran Abs Auto 0.03 X10*3/uL (0.00-0.03); Imm Gran Pct Auto 0.4 % (0.0-0.4); Lymphocytes Absolute Auto 3.0 X10*3/uL (1.2-4.9); Mean Corpuscular HGB Conc 30.6 g/dl (31.0-35.0); Mean Corpuscular Hemoglobin 23.1 pg (27.0-33.0); Mean Corpuscular Volume 75.6 fL (80.0-98.0); NRBC Abs Auto 0.000 X10*3/uL (0.0-0.012); NRBC Pct Auto 0.0 /100WBC (0.0-0.2); Platelet Count 320 X10*3/uL (160-400); Red Blood Count 4.80 X10*6/uL (4.20-5.50); White Blood Count 7.6 X10*3/uL (4.8-10.8)
[2025-06-28 11:35] LABS: Hemoglobin A1C 103.7972 umol/L; Total Hemoglobin (HGBA1C) 2927.4207 umol/L
[2025-06-28 12:23] LABS: Alanine Aminotransferase 20 U/L (0-31); Albumin Level 4.3 g/dL (3.5-5.0); Alkaline Phosphatase 51 U/L (39-117); Anion Gap 13 (12-20); Aspartate Amino Transferase 18 U/L (5-31); Blood Urea Nitrogen 13 mg/dL (9-16); Calcium 8.8 mg/dL (8.4-10.2); Carbon Dioxide 25 mmol/L (22-29); Chloride 106 mmol/L (96-108); Cholesterol 182 mg/dL (<200); Estimated Glomerular Filt Rate > 60; HDL Cholesterol 57 mg/dL (>40); Iron 27 mcg/dL (30-160); Percent Iron Saturation 7 % (15-50); Potassium 3.9 mmol/L (3.3-5.1); Sodium 140 mmol/L (135-145); Total Iron Binding Capacity 373 mcg/dL (228-428); Total Protein 6.9 g/dL (6.5-8.0); Triglycerides 74 mg/dL (<150); Unsaturated Iron Binding 346 ug/dL
[2025-06-28 12:31] LABS: Ferritin 4 ng/mL (10-122)
[2025-06-28 12:49] LABS: Folate 8.1 ng/mL (> or = 4.0); Vitamin B12 375 pg/mL (200-900)
== END 2025-06-28 08:56 | disposition home or self-care (01) ==
LOC: HO.LAB 08:55
PROVIDERS: PCP Nurse Practitioner Family; Visit Provider Physician Assistant Surgical
DX: Z13.6 Encounter for screening for cardiovascular disorders (principal); Z13.1 Encounter for screening for diabetes mellitus; Z90.3 Acquired absence of stomach [part of]
CPT/HCPCS: 36415; 80053; 80061; 82306; 82607; 82728; 82746; 83036; 83525; 83540; 84425; 84443; 84590; 84630; 85025; 86140

== ENCOUNTER 2025-10-07 15:09 | Outpatient (AMB) | payer BC, SELFPAY ==
--- NOTE | 2025-10-07 15:15 | A.OFFVIS_ITS ---
Vital Signs 3 10/07/25 15:16 Height 5 ft 2 in Weight 222 lb 10.67 oz BMI 40.7 BP 95/61 Blood Pressure Location Lt brachial Position Sitting Pulse 75 Intake Visit Reasons: Diarrhea Intake Note: New patient in office today for evaluation and management of diarrhea. CC: Patient c/o diarrhea for months. She states that she has tried to change her diet but nothing has helped her symptoms. She states that she has celiac and is already following a gluten free diet. She also reports every now and then seeing some bright red blood in stool. Accounting Generalist Required: No Allergies sulfamethoxazole (From BACTRIM) Allergy (Mild, Verified 10/07/25 15:20) SEVERE MIGRAINES trimethoprim (From BACTRIM) Allergy (Mild, Verified 10/07/25 15:20) SEVERE MIGRAINES NSAIDS (Non-Steroidal Anti-Inflamma Adverse Reaction (Verified 10/07/25 15:20) unable to take 2/2 gastric sleeve HPI HPI Diarrhea: Details: 40-year-old female here for initial evaluation of diarrhea. She is referred by Deon Mckenna. PMX Obesity History of gallstone pancreatitis Malabsorption due to sleeve gastrectomy Gluten intolerance History of gestational diabetes Diarrhea * SURGICAL HISTORY Cholecystectomy Sleeve gastrectomy [place] tooth extraction * ALLERGIES Sulfa NSAIDs * [employer] labs: Laboratory Tests 12/26/22 06/28/25 09:51 09:18 WBC 7.6 Hgb 11.1 L Hct 36.3 L MCV 75.6 L MCH 23.1 L MCHC 30.6 L Plt Count 320 Estimated GFR > 60 Total Bilirubin 0.3 AST 18 ALT 20 Alkaline Phosphatase 51 C-Reactive Protein 0.20 TSH 1.09 Tiss Transglutamin IgG <1.0 Tiss Transglutamin IgA <1.0 06/14/25-[address]: ORDERED: GI Panel Test Result Flag Reference Campylobacter Not Detected Not Detect. P. shigelloides Not Detected Not Detect. Salmonella Not Detected Not Detect. Vibrio Not Detected Not Detect. Vibrio Cholerae Not Detected Not Detect. Y. enterocolit. Not Detected Not Detect. E. coli EAEC Not Detected Not Detect. E. coli EPEC Not Detected Not Detect. E. coli ETEC Not Detected Not Detect. E. coli STEC Not Detected Not Detect. E. coli O157 Not applicable Not Detect. E. coli containing the O157 antigen are a subset of Shiga-like toxin-producing E. coli (STEC). Shigella/EIEC Not Detected Not Detect. Cryptosporidium Not Detected Not Detect. Cyclospora Not Detected Not Detect. E. histolytica Not Detected Not Detect. Giardia lamblia Not Detected Not Detect. Adenovirus Not Detected Not Detect. Astrovirus Not Detected Not Detect. Norovirus Not Detected Not Detect. Rotavirus A Not Detected Not Detect. Sapovirus Not Detected Not Detect. Today's visit [facility] Medical History (Updated 10/07/25 @ 15:39 by CONY Forman) Physical exam Physical exam, pre-employment Flu-like symptoms Exposure to COVID-19 virus Incomplete immunization status Screening for tuberculosis Pancreatitis, gallstone History of miscarriage, not currently Cervical polyp Malabsorption due to intolerance, not elsewhere classified Surgical History (Updated 10/07/25 @ 15:39 by CONY Forman) Hx laparoscopic cholecystectomy History of sleeve gastrectomy Hx of wisdom tooth extraction Family History Father Hypertension Substance use disorder Mother Alcoholism S/P panniculectomy Active asthma Hypertension Substance use disorder Mental health disorder Sister Alcoholism Hypertension Mental health disorder Paternal Grandfather Prostate cancer Unknown Colon cancer Social History Housing: Apartment Alcohol intake: never Patient Tobacco Use Status: Never used Tobacco e-Cigarette/Vaping Use: Never Used Second Hand Smoke Exposure: No service: No Current occupational status: employed Current occupation: [employer] [place] Current occupational exposures/hazards: No Cognitive needs: No Hearing needs: No Vision needs: No Review of Systems Const Denies fatigue, Denies fever(s), Denies night sweats, Denies poor appetite, Reports weight gain and Denies weight loss Eyes Details: glasses Reports requires corrective lenses ENT Reports Normal hearing present, Denies dysphagia, Denies odynophagia, Denies throat swelling and Denies tongue swelling Card Reports no additional complaints Resp Reports no additional complaints GI Details: Denies abdominal pain, Denies melena, Denies bloating, Denies hematochezia, Denies constipation, Denies GI cramping, Denies dysphagia, Denies excessive flatus, Denies early satiety, Denies heartburn, Reports diarrhea, Denies nausea, Denies odynophagia, Denies vomiting and Denies hematemesis Skin/Breast Denies pruritus, Denies lesions, Denies rash and Denies jaundice Neuro Reports Normal hearing present and Denies Abnormal speech present Psych Reports anxiety Endo Denies fatigue Aller/Immun Denies throat swelling and Denies tongue swelling Physical Exam Vital Signs: Last Vital Signs Pulse 75 10/07/25 15:16 BP 95/61 10/07/25 15:16 BMI result Body Mass Index 40.7 Const General: cooperative, no acute distress, well developed and well groomed Nutritional Appearance: well nourished and obese Orientation/consciousness: oriented to person, oriented to place and oriented to time Limitations: No language barrier HEENT Head: Yes normocephalic and Yes atraumatic Eyes General: appearance normal, both eyes and all related structures Pupils: Equal, round and reactive pupils present Neck Neck: Yes normal visual inspection and Yes no lymphadenopathy Thyroid: Thyroid normal Resp Effort & Inspection: normal respiratory effort and able to speak in complete sentences Auscultation: clear to auscultation bilaterally Cardio Rate: regular rate Rhythm: regular rhythm Heart sounds: Normal, physiologic split S2 sound present Peripheral pulses: radial pulses present and posterior tibial pulses present GI Inspection: No distended, Yes Abdominal panniculus present and Yes obesity Palpation (GI): Soft to palpation, nontender, no guarding, not rigid and No hepatosplenomegaly present Percussion: Yes normal to percussion Auscultation: normal bowel sounds Rectal Exam - Female: deferred Abdomen image: 2 1. ] Surgical scar Skin General skin exam: no rashes or lesions noted, turgor normal, skin not dry, no jaundice, No spider nevi and no striae Rashes: no rashes Nails: normal Neuro General: oriented to person, oriented to place and oriented to time Cranial nerves: Yes Equal, round and reactive pupils present and Yes Normal hearing present Speech: No Abnormal speech present Extrem General: Yes normal to inspection, No clubbing, No cyanosis and No edema Psych Appearance: grossly normal and well kempt Mental Status: mental status grossly normal Speech and movement: Normal speech and movement present Affect: normal affect Attitude: cooperative Thought process: Normal thought process present and not confabulating Thought content: Normal thought content present Insight: Good insight present (Psych) Judgement: Good judgement present (Psych) Assessment & Plan Assessment & Plan (1) Diarrhea: Code(s): R19.7 - Diarrhea, unspecified Category: Medical Qualifiers: Diarrhea type: unspecified type Qualified Code(s): R19.7 - Diarrhea, unspecified (2) Hx laparoscopic cholecystectomy: Comment: 03/2024 Code(s): Z90.49 - Acquired absence of other specified parts of digestive tract Category: Surgical Plan Subjective Patient presents to discuss chronic intermittent diarrhea. Symptoms began during prior pregnancies with sporadic postprandial diarrhea to various foods and became more prominent after cholecystectomy. Diarrhea occurs predominantly during daytime hours, including at work, and can be triggered by a wide range of foods and beverages (e.g., protein shakes, yogurt, eggs, Lebanese muffin, salads, Starbucks drinks), though not consistently; at times even water precipitates loose stools. She has trialed dietary modifications including low-fat intake and thickening foods such as oatmeal (with water), without reliable benefit. Denies abdominal pain. Reports occasional heartburn related to specific foods. No unintentional weight loss; perceives weight gain in the context of stress and boredom eating. Previously stopped sertraline (Zoloft) due to concern for diarrhea, but symptoms persisted unchanged. Relevant Past Medical, Social, and Family History - Strict gluten-free diet since 2019; patient reports gluten triggers illness and was told she had celiac disease historically. Maternal grandfather with celiac disease. - Cholecystectomy; history of weight loss surgery. - Two recent pregnancies (son 09/2022, daughter 08/2023) with noted diarrhea episodes during pregnancies and . - Sedentary job; recent job-related stress. Objective - No peripheral edema observed. - Well-healed small laparoscopic abdominal scars noted. - Prior celiac serology (tissue transglutaminase, 2022) negative; prior testing without evidence of infectious etiology per chart review. 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 Differential also includes food allergy/intolerance and exocrine pancreatic insufficiency; stress-related diarrhea may contribute. - Start cholestyramine powder: mix in water twice daily. If constipation develops, reduce to once daily; discontinue if intolerable adverse effects and notify clinic. - Stool studies to evaluate for pancreatic insufficiency. - Bloodwork including RAST food allergy panel and additional labs as ordered. - Provide and ensure patient brings RAST requisition sheet to the lab. - Review prior CT abdomen from last year (performed pre-cholecystectomy) for any non-biliary findings relevant to current symptoms. - Follow up in approximately 6 weeks (may extend to 8 weeks due to holiday scheduling). Patient to call if medication is not received, cost-prohibitive, or adverse effects occur. Gluten sensitivity/celiac disease history: Longstanding strict gluten avoidance since 2018; prior tissue transglutaminase in 2022 negative (likely while gluten- free). Family history notable for maternal grandfather with celiac disease. Given current gluten-free status, will avoid gluten challenge at this time. - Continue strict gluten-free diet as tolerated. - Proceed with broad RAST food allergy panel to assess for additional food- related triggers. Orders: Orders 2 Rast Allergen Today R19.7 - Diarrhea, unspecified Pancreatic Elastase-1 Today R19.7 - Diarrhea, unspecified Calprotectin, Fecal Today R19.7 - Diarrhea, unspecified Medications: New 2 cholestyramine (Cholestyramine Light) administer w/meal; avoid other meds within 1hr before or 4-6hr after dose 4 grams PO BID 239.4 grams 6RF R19.7 - Diarrhea, unspecified Coding Level of Care Code New Pt Level 3 (01973) Diagnoses Diarrhea, unspecified type R19.7 Diarrhea type: unspecified type Hx laparoscopic cholecystectomy Z90.49
[2025-10-07 15:16] VITALS: BP 95/61; PULSE 75; BMI 40.7
--- OUTSIDE RECORDS SUMMARY | 2025-10-07 19:26 | XMS_ITS | Encounter Summary ---
Author Organization [facility] Address [address] [place] [address] Phone Care Team Providers Care Medical Billing Associate Name Role Phone Haroldo Marroquin MD Primary Care Provider [phone]- [phone] Deon Mckenna NP Primary Care Provider + Encounter Details Date Type Department Care Team (Latest Contact Info) Description 10/03/2017 Ancillary Orders Virtual Department [address] [place] [address] Yue Link MD [address] [place] [address] [email or web address] Bilateral papilledema due to raised intracranial pressure [...] other significant intracranial pathology apparent. POS - [id number] Narrative 10/06/2017 8:10 PM EST TECHNIQUE: Exam [...] post-gadolinium axial T1 and thin section coronal [id number] the orbits and anterior fossa sequences were [...] other significant intracranial pathology apparent. POS - [id number] Yue Link MD IMG MR HEAD/NECK Final Result documented in this encounter Visit Diagnoses Diagnosis Bilateral papilledema due to raised intracranial pressure Bilateral papilledema due to raised intracranial pressure documented in this encounter Additional Health Concerns Infection Onset Date Last Indicated Resolved Time CoV-Risk 08/28/2022 08/28/2022 09/08/2022 1:57 AM EST documented as of this encounter Care Teams Medical Billing Associate Relationship Specialty Start Date End Date Haroldo Marroquin MD PCP - General Internal Medicine 10/03/17 12/26/18 Deon Mckenna NP [facility] [place] [address] PCP - General Family Medicine 12/27/18 documented as of this encounter Additional Source Comments The information contained in this document represents components of the legal health record. It is not the complete legal health record.[facility]
--- OUTSIDE RECORDS SUMMARY | 2025-10-07 19:26 | XMS_ITS | Clinical Summary ---
Author Organization [facility] Address [address] [facility] [address] [place] [address] Phone Care Team Providers Care Gas Station Service Attendant Name Role Phone Deon Mckenna NP Primary Care Provider + Allergies Active Allergy Reactions Criticality Noted Date Comments Sulfamethoxazole-Trimethoprim Headaches 2019 Gluten Protein 09/23/2022 Pt is celiac Medications sertraline (ZOLOFT) 50 MG tablet Take 1 tablet (50 mg total) by mouth daily. 90 tablet 2 5 Active vitamins-DHA (DUET DHA ) 29 mg iron-1 mg -430 mg Cmpk Take 1 packet by mouth daily. 09/30/20 Discontinu ed(No longer taking) calcium carbonate/vitam in D3 (CALCIUM WITH VITAMIN D3 ORAL) Take by mouth daily. 09/30/20 Discontinu ed(No longer taking) cyanocobalamin, vitamin B-12, (VITAMIN B-12 ORAL) Take by mouth. 09/30/20 Discontinu ed(No longer taking) biotin 1 mg tablet Take 1,000 mcg by mouth daily. 09/30/20 Discontinu ed(No longer taking) ZINC ORAL Take 50 mg by mouth. 09/30/20 Discontinu ed(No longer taking) sertraline (ZOLOFT) 50 MG tabletIndicatio ns:Depression affecting in third trimester, antepartum TAKE 1 TABLET BY MOUTH DAILY 90 tablet 3 11/2509/30/20 25 Discontinu ed(No longer taking) Active Problems Problem Noted Date Diagnosed Date [...] a lot and exhausted by plus active [id number]. Rec'd TDAP today. PP BCM discussed, they [...] well. Happy to be seeing midwives again! Baby John is 7 months old and adorable, doing [...] EDT): Mickie here with partner Riley and baby John for FOB. Reports feeling well. Just returned [...] her. Encouraged to keep taking to see custodial effects. We reviewed that there is always [...] (11/02/2020 2:27 PM EST): Previously referred to M, would be reasonable to pursue work up given obstetric history. Discussed periods, monitor next 1-2 cycles and follow up if bleeding pattern continues to be irregular. History of abnormal cervical Pap smear 0 Overview (05/12/2023): 2017 ASCUS/neg HPV ([place]) 2019: NIL/HPV neg Pap due at FOB--pt would like to defer to PP History of bariatric surgery 06/18/2020 Overview (08/02/2023): Gastric Sleeve 2019 [facility] Pt is meeting with dietitian at [...] F ertility and after bariatric surgery . [email or web address]&source=search_result&selectedTitle=1~150& usage _type=default&display_rank=1 Assessment & Plan [...] recommended, reviewed alternative - discuss further at ma. Assessment & Plan (03/02/2022 4:25 PM EDT): Saw windows server support technician and was low on iron. Rx for iron sent today Assessment & Plan (06/23/2020 4:37 PM EDT): Mickie is committed to following salesperson hosiery's guidelines for nutrition/weight gain parameters during - [...] next week appointment. Advanced maternal age in [facility], second trimester 03/28/2023 09/24/2023 Overview (03/28/2023): [...] Gave info on spinning babies exercises and medical care evaluation specialist Supervision of high risk pre gnancy in [...] AM EDT): Feels well. Delighted by baby Fults's movements, she feels really connected and loving [...] She has Level II schedule 05/09 at [facility]. Also had Level 1 04/21 since [...] SROM in second trimester Had D&E at [facility], records in [facility] Assessment & Plan (08/23/2020 3:19 PM EST): We reviewed the notes from [facility]; on their u/trasound, previa not confirmed (imaging limited Laminaria were placed and then D&E done, uncomplicated Discussed cause unknown; possibly due to infection as inflammation was on the path report Recommend consult with Dr Morrissey at [facility] for counseling for future , if [...] , antepartum 06/18/2020 11/02/2020 Overview (07/28/2020): MD [facility] OB-CMI score has been filled out for this encounter. Growth u/s for recent gastric sleeve surgery (2019) Group PN care? * Rh positive GC/Chlam * PAP - 2019 dinesh, report seen, neg Tdap * Flu * [...] HPV in the past several years at [employer] with colposcopy/bx, fol up etc including ? Plan for yearly paps. She believes her last pap was in 2019. Pap results/records not in those received - note made that we need those for review and to determine plan/timing of paps. Encounters Date Type Department Care Team Description 10/04/2025 Refill [facility] [address] [place] [address] Annalee Colorado CNM, MPH Medication Refill 09/30/2025 4:10 PM EST Office Visit [facility] [address] [place] [address] [place] [address] Alycia Miner CNM Mass of upper outer quadrant of right breast (Primary Dx) from Last 3 Months Immunizations Immunization Administration Dates Next Due COVID-19 [...] your housing situation today? I have gerardo armstrong 04/15/2024 How many times have you move [...] Sign Reading Time Taken Comments Blood Pressure 106/66 09/30/2025 4:23 PM EST Pulse 69 04/30/2024 8:37 AM EDT [...] Done Comments DEPRESSION SCREENING 1998 COVID-19 VACCINE (2024- season) 2025 08/27/2021, 12/11/2020, 11/20/2020 SCREENING FOR DIABETES 04/17/2027 04/17/2024 PAP SMEAR 11/03/2028 11/03/2023, 04/17/2019 Adult Td,Tdap Booster 07/17/2033 07/17/2023 , 07/06/2022, 02/21/2016 HIV ONE-TIME SCREENING (18-65 YEARS) Completed 02/04/2023 HEPATITIS C SCREENING Completed 04/15/2024 , 04/15/2024, 04/15/2024, Additional history exists INFLUENZA VACCINE Completed 07/04/2025, , 07/22/2023, Additional history exists SMOKING STATUS SCREENING (Once After 26 Yrs) Completed 09/30/2025 HEPATITIS A VACCINES Aged Out No long [...] PM EDT) HCV NON-REACTIV E NON-REACTI VE [facility] Blood 04/15/2024 3:48 PM EDT 04/15/2024 3:58 PM EDT us Emil Arboleda DO, MPH LAB BLOOD BKR ORDERABLES F inal Result Performing Organization Address [facility]/State/[facility] Co de Phone Number [address] [address] * Pap Test (11/03/2023 12:00 AM EST) [place] [address] Powertrain Control Systems Engineer: Imani Aguilera MD MANAGER LOAN Cytology Report FINAL DIAGNOSIS A. PAP SMEAR [...] 59, 66, 68) Note: Testing performed by [employer] HR-HPV analysis. Clinical correlation is advised. This HPV test was performed at [facility], [address] [place] [address]. This test has been FDA approved for SurePath cervical cytology specimens. The accuracy and precision of this test for all other specimen sources has been verified in the Cytopathology Laboratory of the [facility] and has not been cleared or approved by the U.S. Food and Drug Administration. Clinical correlation is advised. CLINICAL HISTORY Date of Last Menstrual Period: 11-26-2022 Menstrual History: Other Clinical Conditions: Screening Pap SPECIMEN SOURCE A: PAP SMEAR (SUREPATH) CE Patient Name: MICKIE SNAZ : 1985 (Age: 38) Sex: F Institution: [facility] Location: [facility] Date of Collection: 11/03/2023 Date of Reported: 11/08/2023 15:22 Results to: Naa HALL [facility] Final Diagnosis A. PAP SMEAR (SUREPATH) CE: SPECIMEN ADEQUACY: Satisfactory for evaluation; transformation zone present. INTERPRETATION: NEGATIVE FOR INTRAEPITHELIAL LESION OR MALIGNANCY. [facility] Results\Inter pretation A. PAP SMEAR (SUREPATH) CE: Human Papilloma Virus TestNEGATIVE for high-risk Human Papilloma Virus types 16, 18, 45 and the Other high risk probe set (Includes 31, 33, 35, 39, 51, 52, 56, 58, 59, 66, 68)Note: Testing performed by [employer] HR-HPV analysis. Clinical correlation is advised. This HPV test was performed at [address] This test has been FDA approved for SurePath cervical cytology specimens. The accuracy and precision of this test for all other specimen sources has been verified in the Cytopathology Laboratory of the [facility] and has not been cleared or approved by the U.S. Food and Drug Administration. Clinical correlation is advised. [facility] Conversion Type (Conversion Source) 11/03/2023 11/06/2023 9:24 AM EST Naa HALL CYTOLOGY ORDERABLES Edited Result - Final [facility] [address] [place] [address] from Last 3 Months or Most Recently Relevant to Health Maintenance Insurance [employer] [facility] [place] [address] [address] FULL Member Subscriber Plan / Payer (Ef fective 2025-Present) Name:Mickie Sanz Relation to Subscriber:Self Name:Mickie Sanz Payer ID:Not on file Group ID:Not on file Type:Medicaid Address: [employer], [address] Member Subscriber Plan / Payer (Ef fective 2025-Present) Name:Mickie Sanz Relation to Subscriber:Self Name:Mickie Sanz Payer ID:Not on file Group ID:Not on file Type:Medicaid Address: [address] FULL Member Subscriber Plan / Payer (Ef fective 2025-Present) Name:Mickie Sanz Relation to Subscriber:Self Name:Mickie Sanz Payer ID:Not on file Group ID:Not on file Type:Medicaid Address: [address] FULL Member Subscriber Plan / Payer ( fective 2025-) Name:Mickie Sanz Relation to Subscriber:Self Name:Mickie Sanz Payer ID:Not on file Group ID:Not on file Type:Medicaid Address: [address] [facility] Advance Directives For more information, please contact: [phone] (9AM - 5PM [place]/[facility], Monday-Monday) Documents on File Type Date Recorded Patient Industrial Truck Driver Expl anation Healthcare Proxy 09/27/2022 12:31 PM [...] Agent (Proxy form on file) Care Teams Gas Station Service Attendant Relationship Specialty Start Date End Date Deon Mckenna NP [facility] [place] [address] PCP - General Family Medicine 12/27/18 Additional Source Comments The information contained in this document represents components of the legal health record. It is not the complete legal health record.[facility]
--- OUTSIDE RECORDS SUMMARY | 2025-10-07 19:26 | XMS_ITS | Encounter Summary ---
Author Organization [facility] Address [address] [facility] [address] [place] [address] Phone Care Team Providers Care Awning Hanger Name Role Phone Deon Mckenna NP Primary Care Provider + Reason for Visit * Reason Comments Medication Refill Encounter Details Date Type Department Care Team (Late st Contact Info) Description 10/04/2025 Refill [facility] [address] [place] [address] Annalee Colorado CNM, MPH [address] [facility], [address] [address] [email or web address] Medication Refill Social History Tobacco Use Types Packs/Day Years [...] AM EST documented as of this encounter Progress Notes * Fazal Moore MA - 10/06/2025 10:00 AM EST IMPORTANT - At least one Rx mismatch identified. Original(s) may be discontinued, , or different strength/form. Review required. Rx Care Gap Status - Instructions for Clinical Staff (prescriber discretion applies): > Mismatch review guide > No future appt: Please schedule if appropriate. Visit Info Last visit: 09/30/2025 Alycia Miner CNM - Obstetrics and Gynecology [facility] > Requested f/u: Not specified Upcoming visit: None ACTIONS TAKEN BY Fazal Moore MA - Criteria met. Antidepressant / Anxiolytics (Non-Benzodiazepine) Rx Protocol - sertraline HCl Visit in the past 14 months: Yes documented in this encounter Plan of Treatment Not on file documented as of this encounter Visit Diagnoses Not on filedocumented in this encounter Care Teams Awning Hanger Relationship Specialty Start Date End Date Deon Mckenna NP [address] [facility] [place] [address] PCP - General Family Medicine 12/27/18 documented as of this encounter Additional Source Comments The information contained in this document represents components of the legal health record. It is not the complete legal health record.[facility]
--- OUTSIDE RECORDS SUMMARY | 2025-10-07 19:26 | XMS_ITS | Encounter Summary ---
Author Organization [facility] Address [address] [facility] [address] [place] [address] Phone Care Team Providers Care Machine Operator General Name Role Phone Deon Mckenna NP Primary Care Provider + Encounter Details Date Type Department Care Team (Late st Contact Info) Description 07/18/2022 Ancillary Orders [facility] [address] [place] [address] Alycia Miner CNM 22 [facility], [address] [place] [id number] [email or web address] History of bariatric surgery Social History Tobacco [...] Indicated Resolved Time CoV-Risk 08/28/2022 08/28/2022 09/08/2022 1:5 7 AM EST documented as of this encounter Care Teams Machine Operator General Relationship Specialty Start Date End Date Deon Mckenna NP [address] [place] [address] [place] [address] PCP - General Family Medicine 12/27/18 documented as of this encounter Additional Source Comments The information contained in this document represents components of the legal health record. It is not the complete legal health record.[facility]
--- OUTSIDE RECORDS SUMMARY | 2025-10-07 19:26 | XMS_ITS | Encounter Summary ---
Author Organization [facility] Address [address] [place] [address] Phone Care Team Providers Care Leather Flesher Name Role Phone Deon Mckenna NP Primary Care Provider + Encounter Details Date Type Department Care Team (Late st Contact Info) Description 04/15/2024 Procedure Pass [facility], [address] [address] Social History Tobacco Use Types Packs/Day Years [...] 5:00 AM EDT Bella Estrada RN * [place] Suicide Severity Rating Scale (Screener/Recent Self-Report) Question [...] on filedocumented in this encounter Care Teams Leather Flesher Relationship Specialty Start Date End Date Deon Mckenna NP [facility] [place] [address] PCP - General Family Medicine 12/27/18 documented as of this encounter Additional Source Comments The information contained in this document represents components of the legal health record. It is not the complete legal health record.[facility]
--- OUTSIDE RECORDS SUMMARY | 2025-10-07 19:26 | XMS_ITS | Encounter Summary ---
Author Organization [facility] Address [address] [facility] [address] [place] [address] Phone Care Team Providers Care Airport Tower Controller Name Role Phone Deon Mckenna NP Primary Care Provider + Encounter Details Date Type Department Care Team (Latest Contact Info) Description 08/02/2021 Transcribe Orders [facility] [address] [place] [address] Kyle Resendez CN [address] [facility], [address] [place] [address] [email or web address] Recurrent loss (Primary Dx) Social History Tobacco [...] 8:14 AM EDT) HCG BETA 5.7 mIU/mL [facility] Comment: Interpretation: FEMALE: Negative: Less than or equal to 1 mIU/mL. 4 Weeks Post Conception: 9.5 - 750 mIU/mL. 12 Weeks Post Conception: [id number] - 647774 mIU/mL. Blood 08/04/2021 8:14 AM EDT 08/04/2021 8:17 AM EDT us Kyle Resendez CNM LAB BLOOD BKR ORDERABLES Fin al Result [facility] [address] [place] [address] documented in this encounter Visit Diagnoses Diagnosis Recurrent loss- Primary documented in this encounter Additional Health Concerns Infection Onset Date Last Indicated Resolved Time CoV-Risk 08/28/2022 08/28/2022 09/08/2022 1:57 AM EST documented as of this encounter Care Teams Airport Tower Controller Relationship Specialty Start Date End Date Deon Mckenna NP [facility] [place] [address] PCP - General Family Medicine 12/27/18 documented as of this encounter Additional Source Comments The information contained in this document represents components of the legal health record. It is not the complete legal health record.[facility]
--- OUTSIDE RECORDS SUMMARY | 2025-10-07 19:26 | XMS_ITS | Encounter Summary ---
Author Organization [facility] Address [address] [facility] [address] [place] [address] Phone Care Team Providers Care Sap Mobility Architect Name Role Phone Haroldo Marroquin MD Primary Care Provider +1- [phone] Deon Mckenna NP Primary Care Provider + Encounter Details Date Type Department Care Team (Late st Contact Info) Description 02/09/2018 Procedure Pass [facility], Ct Scan - [address] [address] Social History Tobacco Use Types Packs/Day Years [...] documented as of this encounter Care Teams Sap Mobility Architect Relationship Specialty Start Date End Date Haroldo Marroquin MD [email or web address] PCP - General Internal Medicine 10/03/17 12/26/18 Deon Mckenna NP [facility] [address] PCP - General Family Medicine 12/27/18 documented as of this encounter Additional Source Comments The information contained in this document represents components of the legal health record. It is not the complete legal health record.[facility]
--- OUTSIDE RECORDS SUMMARY | 2025-10-07 19:27 | XMS_ITS | Encounter Summary ---
Author Organization [facility] Address [address] [facility] [address] [place] [address] Phone Care Team Providers Care Filling Carrier Name Role Phone Haroldo Marroquin MD Primary Care Provider +1- [phone] Deon Mckenna NP Primary Care Provider + Encounter Details Date Type Department Care Team (Late st Contact Info) Description 02/09/2018 Procedure Pass [facility], Ct Scan - [address] [address] Social History Tobacco Use Types Packs/Day Years [...] documented as of this encounter Care Teams Filling Carrier Relationship Specialty Start Date End Date Haroldo Marroquin MD [email or web address] PCP - General Internal Medicine 10/03/17 12/26/18 Deon Mckenna NP [facility] [place] [address] PCP - General Family Medicine 12/27/18 documented as of this encounter Additional Source Comments The information contained in this document represents components of the legal health record. It is not the complete legal health record.[facility]
--- OUTSIDE RECORDS SUMMARY | 2025-10-07 19:27 | XMS_ITS | Encounter Summary ---
Author Organization [facility] Address [address] [facility] [address] [place] [address] Phone Care Team Providers Care Carton Liner Name Role Phone Haroldo Marroquin MD Primary Care Provider +1- [phone] Deon Mckenna NP Primary Care Provider + Encounter Details Date Type Department Care Team (Late st Contact Info) Description 10/03/2017 Procedure Pass [facility], [address] [address] Social History Tobacco Use Types Packs/Day Years [...] documented as of this encounter Care Teams Carton Liner Relationship Specialty Start Date End Date Haroldo Marroquin MD [email or web address] PCP - General Internal Medicine 10/03/17 12/26/18 Deon Mckenna NP [facility] [place] [address] PCP - General Family Medicine 12/27/18 documented as of this encounter Additional Source Comments The information contained in this document represents components of the legal health record. It is not the complete legal health record.[facility]
--- OUTSIDE RECORDS SUMMARY | 2025-10-07 19:27 | XMS_ITS | Encounter Summary ---
Author Organization [facility] Address [address] [place] [address] Phone Care Team Providers Care Commercial Trailer Truck Driver Name Role Phone Deon Mckenna GRANT OFFICER Primary Care Provider + Encounter Details Date Type Department Care Team (Late st Contact Info) Description 04/15/2024 Procedure Pass [facility], Ct Scan - [facility] [address] [place] [address] Social History Tobacco Use Types Packs/Day Years [...] 5:00 AM EDT Bella Estrada RN * [place] Suicide Severity Rating Scale (Screener/Recent Self-Report) Question [...] on filedocumented in this encounter Care Teams Commercial Trailer Truck Driver Relationship Specialty Start Date End Date Deon Mckenna NP [address] [facility] [place] [address] PCP - General Family Medicine 12/27/18 documented as of this encounter Additional Source Comments The information contained in this document represents components of the legal health record. It is not the complete legal health record.[facility]
--- OUTSIDE RECORDS SUMMARY | 2025-10-07 19:27 | XMS_ITS | Encounter Summary ---
Author Organization [facility] Address [address] [place] [address] Phone Care Team Providers Care Dissolver Operator Name Role Phone Deon Mckenna STATE FEDERAL RELATIONS DEPUTY DIRECTOR Primary Care Provider + Encounter Details Date Type Department Care Team (Late st Contact Info) Description 04/17/2024 Procedure Pass [place] Admitting Dept - Virtual Department [address] [place] [address] Social History Tobacco Use Types Packs/Day Years [...] on filedocumented in this encounter Care Teams Dissolver Operator Relationship Specialty Start Date End Date Deon Mckenna NP [address] [place] [address] PCP - General Family Medicine 12/27/18 documented as of this encounter Additional Source Comments The information contained in this document represents components of the legal health record. It is not the complete legal health record.[facility]
--- OUTSIDE RECORDS SUMMARY | 2025-10-07 19:27 | XMS_ITS | Encounter Summary ---
Author Organization [facility] Address [address] [place] [address] Phone Care Team Providers Care Director [employer] Name Role Phone Haroldo Marroquin MD Primary Care Provider [phone] Deon Mckenna NP Primary Care Provider + Reason for Referral * MRI/CAT Scan - Closed Specialty Diagnoses / Procedures Referred By Arti vargas Referred To Contact Radiology Diagnoses Pulsatile tinnitus of right ear Dizziness and giddiness Procedures CT Angio Neck Jay Travis MD [address] [facility] [address] Phone: tel: fax: [email or web address]:[email or web address] Referral ID Status Reason Start Date Expiration Date Visits Re quested Visits Authorized [id number] Closed 02/08/2018 04/09/2018 1 1 * MRI/CAT Scan - Closed Specialty Diagnoses / Procedures Referred By Arti vargas Referred To Contact Radiology Diagnoses Dizziness and giddiness Pulsatile tinnitus of right ear Procedures CT Angio Head Jay Travis MD [address] [employer] [address] [address] Phone: tel: fax: mailto:[email or web address] Referral ID Status Reason Start Date Expiration Date Visits Re quested Visits Authorized [id number] Closed 02/08/2018 04/09/2018 1 1 Encounter Details Date Type Department Care Team (Late st Contact Info) Description 02/09/2018 Ancillary Orders Virtual Department [address] [place] [address] Jay Travis MD [address] [facility], [address] [place] [address] [email or web address] Dizziness and giddiness; Pulsatile tinnitus [...] mGy POS [id number] us Jay Travis MD [facility] CT HEAD/NECK Final Re sult * CT [...] documented as of this encounter Care Teams Director [employer] Relationship Specialty Start Date End Date Haroldo Marroquin MD PCP - General Internal Medicine 10/03/17 12/26/18 Deon Mckenna NP [address] [place] [address] PCP - General Family Medicine 12/27/18 documented as of this encounter Additional Source Comments The information contained in this document represents components of the legal health record. It is not the complete legal health record.[facility]
== END 2025-10-07 16:17 | disposition home or self-care (01) ==
LOC: HO.HGI 15:10
PROVIDERS: PCP Nurse Practitioner Family; Visit Provider Nurse Practitioner
DX: R19.7 Diarrhea, unspecified (principal); Z90.49 Acquired absence of other specified parts of digestive tract
CPT/HCPCS: 99203

== ENCOUNTER 2025-10-07 15:09 | Outpatient (REF) | payer BC, SELFPAY | END 2025-10-07 15:10 | disposition home or self-care (01) | LOC: HO.LAB 15:09 | PROVIDERS: PCP Nurse Practitioner Family; Visit Provider Nurse Practitioner | DX: R19.7 Diarrhea, unspecified (principal); Z90.49 Acquired absence of other specified parts of digestive tract | CPT/HCPCS: 36415; 86003 ==